=== PATIENT | male | born 1960 | race Caucasian/White ===

== ENCOUNTER 2018-04-06 11:25 | Inpatient (IN) | payer MEDICARE, SELFPAY ==
[2018-04-06 11:50] VITALS: BP 124/76; PULSE 71; RESP 16; TEMP 36.4; O2SAT 97
[2018-04-06 11:56] VITALS: BMI 33.5
[2018-04-06 11:58] VITALS: BMI 33.6
--- NOTE | 2018-04-06 12:58 | PCM.HP.STD ---
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 (3) Osteomyelitis of toe Status: Acute Comment: left great toe, distal phalnax (4) HLD (hyperlipidemia) Status: Chronic (5) History of transmetatarsal amputation of right foot Status: Chronic (6) Former smoker, stopped smoking in distant past Status: Chronic (7) Diabetic neuropathy Status: Chronic (8) CRF (chronic renal failure) Status: Chronic (9) Diabetic Charcot foot Status: Chronic History of Present Illness Date of Admission: 04/06/18 Chief Complaint: non-healing ulceration of the distal Left hallux with osteomyelitis The patient is a 58 year old M with a PMH of DM II, HTN, diabetic neuropathy, HLD, former smoker (quit in 1994) and transmetatarsal amputation of the R foot who was recently diagnosed with osteomyelitis of the left great toe by Dr. Ceballos who is being admitted to the hospital for amputation of the distal left great toe this afternoon. Osteo was diagnosed by MRI. No cultures or lab work available to me at this time. He denies fevers, chills and sweats. He has mild pain. Past Medical History Past Medical History (Chronic Problems): Chronic Problems HTN (hypertension) (Chronic) Type 2 DM with CKD and hypertension (Chronic) HLD (hyperlipidemia) (Chronic) History of transmetatarsal amputation of right foot (Chronic) Former smoker, stopped smoking in distant past (Chronic) Diabetic neuropathy (Chronic) CRF (chronic renal failure) (Chronic) Diabetic Charcot foot (Chronic) Allergies etodolac Allergy (Verified 04/06/18 12:18) Hives Home Medications: Ambulatory Orders Medication Instructions Recorded Amlodipine [Norvasc] 5 mg PO DAILY 04/06/18 Aspirin [Aspirin, Baby] 81 mg PO DAILY@0800 04/06/18 Atorvastatin Calcium [Lipitor] 40 mg PO QHS 04/06/18 Benazepril HCl [Lotensin] 20 mg PO DAILY 04/06/18 Collagenase [Santyl] 1 applicatio TOPICAL DAILY 04/06/18 Fenofibrate Nanocrystallized 160 mg PO DAILY 04/06/18 [Triglide] Ferrous Sulfate [Iron] 325 mg PO DAILY 04/06/18 Furosemide [Lasix] 20 mg PO DAILY 04/06/18 Insulin Aspart [Novolog Flexpen] 12 units SQ TIDCM 04/06/18 Insulin Glargine,Hum.rec.anlog 34 units SQ DAILY 04/06/18 [Lantus] Metformin(XR) [Glucophage Xr] 1,500 mg PO DAILY 04/06/18 Metoprolol Succinate [Toprol Xl] 50 mg PO DAILY 04/06/18 Sitagliptin Phosphate [Januvia] 100 mg PO DAILY 04/06/18 levoFLOXacin tablet [Levaquin 500 mg PO DAILY 04/06/18 tablet] Surgical History: - - TMA R foot Psychiatric History: No pertinent psych hx Lives: Spouse/ Significant Other Smoking Status: Former smoker - he quit in 1994 Tobacco Use: Non-smoker Alcohol: Occasional Drugs: None - *Family History Maternal History Items: Heart Disease Paternal History Items: - - father is alive and healthy Review of Systems Constitutional: Denies: Anorexia, Chills, Fever, Night Sweats, Weakness Eyes: Denies: Vision Change HEENT: Denies: Head Aches, Sinus Congestion, Sinus Drainage Cardiovascular: Reports: Edema - mild of the LLE at the ankle. Denies: Chest Pain, Light Headedness, Orthopnea, Palpitations Respiratory: Denies: Cough, Shortness of breath at rest, Sputum production Gastrointestinal: Denies: Abdominal Pain, Nausea, Vomiting Genitourinary: Denies: Dysuria Musculoskeletal: Reports: Foot Pain - left Skin: Reports: Wounds - there is an open wound of the distal left hallux at the tip. Denies: Jaundice, Rash Neurological: Reports: Numbness - of both distal LE's. Denies: Focal weakness, Tingling Psychiatric: Denies: Anxiety, Depression, Homicidal Ideations, Suicidal Ideations Endocrine: Denies: Change in Body Habitus Hematologic/ Lymphatic: Denies: Hx of blood clot VTE Information - Inpt Only VTE Present on Admission: No VTE Mechan Device Prophylaxis: SCD's, Knee High PAN Hose VTE Pharm Prophylaxis ordered?: No Reason prophylaxis not ordered:: Treatment Not Indicated - will have surgery in the next few hours and will start pharmacologic DVT prophylaxis post op Patient Problems: Active and Suspected Problems Osteomyelitis of toe (Acute) left great toe, distal phalnax - Physical Exam General: Alert, Oriented x3, Cooperative, No apparent distress HEENT: Atraumatic, PERRLA, EOMI, Normocephalic Oral: Moist Mucosa, No Gingival or Mucosal Lesions/ Ulcerations Neck: Supple, No JVD, Negative Carotid Bruits, No Nodes, Trachea Midline Lungs: Clear to auscultation, Normal air movement, No rhonchi, No wheeze, No rales Cardiovascular: Regular Rhythm, Normal S1, Normal S2, No murmurs, No Ectopic Activity, Bradycardic, No rub noted, No Gallop Abdomen: Bowel Sounds Present, Soft, Non Tender, Non-Distended Extremities: No clubbing, No cyanosis, No Calf Tenderness, Diminished Peripheral Pulses, Edema - of the LLE at the ankle and forefoot Skin: No rashes, Ulcer/ Wound - tip of the Left big toe. + malodor fat layer exposed Musculoskeletal: No Muscle Wasting Neurological: Cranial nerves II-XII grossly intact, Neuro grossly intact Psych/Mental Status: Normal Affect, Appropriate Vital Signs Temp Pulse Resp BP Pulse Ox 97.6 F L 71 16 124/76 H 97 04/06/18 11:50 04/06/18 11:50 04/06/18 11:50 04/06/18 11:50 04/06/18 11:50 Oxygen Delivery Method Room Air Weight: 240 lb 11.916 oz Body Mass Index (BMI) 33.5 Assessment/Plan All Active Problems Osteomyelitis of toe (Acute) Impressions 1. osteomyelitis of the distal Left great toe with non-healing ulceration 2. DM II - uncontrolled HGBA1C 3. HTN 4. Hx of a Charcot foot on the right with TMA in the past 5. PVD - triphasic wave form on non-invasive PVR's to the ankle.....disease is limited to the digits 6. HLD 7. Normochromic normocytic anemia 8. Chronic renal failure stage III BMP, CBC, PT and PTT stat ESR and CRP and HGBA1C Consult Dr. Ceballos....plans on surgery this afternoon so will keep NPO Dr. Mosher called and said no need for repeat PVR's since he has triphasic wave forms down until the ankle Recheck lab in the AM EKG pre-op Consult DR. Hou antibiotics ordered. discussed with Dr. Ceballos - will do a deep wound culture and a bone culture at the time of surgery SSI until we are able to obtain the home meds. Code Visit Inpatient E&M: [id number] Init Hosp L2
--- NOTE | 2018-04-06 13:09 | EKG12_ITS ---
Test Reason : PRE-OP Blood Pressure : / mmHG Vent. Rate : 063 BPM Atrial Rate : 063 BPM P-R Int : 224 ms QRS Dur : 102 ms QT Int : 448 ms P-R-T Axes : 018 060 124 degrees QTc Int : 458 ms Sinus rhythm with 1st degree A-V block T wave abnormality, consider lateral ischemia Abnormal ECG No previous ECGs available Confirmed by DINESH VILLALOBOS ([id number]), staff editor GABRIEL ROBERTS ([id number]) on 04/16/2018 12:34:58 PM Referred By: Del Ceballos Confirmed By:DINESH VILLALOBOS
[2018-04-06 14:14] LABS: Erythrocyte Sedimentation Rate 32 mm/hr (0-20)
[2018-04-06 14:26] LABS: International Normalized Ratio 1.2; Prothrombin Time (Protime)PT. 15.1 SECONDS (11.7-14.9)
[2018-04-06 14:29] LABS: Hemoglobin A1c 8.6 % (4.2-6.3)
[2018-04-06] MEDS: 0.9% Normal Saline 1,000 ML 75 ML IV (14:32)
[2018-04-06] MEDS: Ceftriaxone 1 GM/50 ML BAG IV (14:33)
[2018-04-06 14:39] VITALS: BP 154/93; PULSE 66; RESP 18; TEMP 36.8; O2SAT 98; BMI 35.5
[2018-04-06 14:50] VITALS: PULSE 70
[2018-04-06 14:59] LABS: Hematocrit 37.1 % (40-54); Hemoglobin 12.1 g/dl (13.0-16.5); Mean Corp Hgb Conc 32.6 g/gl (32-36); Mean Corpuscular Hgb 27.8 pg (27.0-32.0); Mean Corpuscular Volume 85.1 fL (80-94); Mean Platelet Vol. 11.1 fl (6.2-12.0); Platelet Count 335 K/mm3 (150-450); RBC Distribution Width CV 13.6 % (11.6-14.6); RBC Distribution Width SD 41.9 fl (35.1-43.9); Red Blood Count 4.36 M/mm3 (4.6-6.2); White Blood Count 8.4 K/mm3 (4.4-11.0)
[2018-04-06 15:02] LABS: Scan Indicated on CBC? Y/N NO
[2018-04-06 15:11] LABS: Bedside Glucose 77 mg/dL (70-110)
--- NOTE | 2018-04-06 15:14 | NURSING ---
Report called to Annie Engel RN, informed that Dr Mendoza has been consulted but has not seen the pt. blood glucose was 77 and will give d5. and iv flds have been ordered to change.
[2018-04-06 15:15] LABS: Anion Gap 7 (5-15); BUN 28 mg/dL (7-18); BUN/Creat Ratio 15.1 RATIO (10-20); Calcium,Total 8.7 mg/dL (8.5-10.1); Chloride 105 mmol/L (98-107); Creatinine, Serum 1.85 mg/dL (0.70-1.30); EST Glomerular Filtration Rate 40 mL/min (>60); Est Glom Filt Rate - Afr Amer 49 mL/min (>60); Estimated Creatinine Clearance 44.05 ml/min; Glucose 84 mg/dL (74-106); Potassium 4.1 mmol/L (3.5-5.1); Sodium Level 139 mmol/L (136-145)
[2018-04-06] MEDS: Dextrose 50%-Water 25 GM/50 ML DISP.SYRIN IV (15:53)
[2018-04-06 16:07] LABS: M R Staph aureus DNA By PCR Negative (Negative); Probe Check PASS; Specimen Processing Control PASS; Staph aureus DNA By PCR POSITIVE (Negative)
--- NOTE | 2018-04-06 16:38 | PCM.HP.ID ---
Problem List (1) Osteomyelitis of toe Status: Acute Comment: left great toe, distal phalnax Reason for Consult: osteo Consulted by: Dr. Chang History of Present Illness: The patient is a 58 year old M with DM neuropathy p/w 1 week of L 1st toe redness, swelling, drainage. No fever, no pain due to neuropathy. Some clear drainage. Not sure how it started. Had MRI done, saw Dr. Ceballos, sent to hospital for iv abx and OR. No n/v/d. Denies any h/o MRSA. Full ROS performed and neg except as noted above. - Medical History Past Medical History (Chronic Problems): Chronic Problems HTN (hypertension) (Chronic) Type 2 DM with CKD and hypertension (Chronic) HLD (hyperlipidemia) (Chronic) History of transmetatarsal amputation of right foot (Chronic) Former smoker, stopped smoking in distant past (Chronic) Diabetic neuropathy (Chronic) CRF (chronic renal failure) (Chronic) Diabetic Charcot foot (Chronic) Allergies/Adverse Reactions: Allergies etodolac Allergy (Verified 04/06/18 12:18) Hives Home Medications: Ambulatory Orders Medication Instructions Recorded Amlodipine [Norvasc] 5 mg PO DAILY 04/06/18 Aspirin [Aspirin, Baby] 81 mg PO DAILY@0800 04/06/18 Atorvastatin Calcium [Lipitor] 40 mg PO QHS 04/06/18 Benazepril HCl [Lotensin] 20 mg PO DAILY 04/06/18 Collagenase [Santyl] 1 applicatio TOPICAL DAILY 04/06/18 Fenofibrate Nanocrystallized 160 mg PO DAILY 04/06/18 [Triglide] Ferrous Sulfate [Iron] 325 mg PO DAILY 04/06/18 Furosemide [Lasix] 20 mg PO DAILY 04/06/18 Insulin Aspart [Novolog Flexpen] 12 units SQ TIDCM 04/06/18 Insulin Glargine,Hum.rec.anlog 34 units SQ DAILY 04/06/18 [Lantus] Metformin(XR) [Glucophage Xr] 1,500 mg PO DAILY 04/06/18 Metoprolol Succinate [Toprol Xl] 50 mg PO DAILY 04/06/18 Sitagliptin Phosphate [Januvia] 100 mg PO DAILY 04/06/18 levoFLOXacin tablet [Levaquin 500 mg PO DAILY 04/06/18 tablet] - Social History SMOKING STATUS:: Former smoker Vital Signs Temp Pulse Resp BP Pulse Ox 98.3 F 70 18 154/93 H 98 04/06/18 14:39 04/06/18 14:50 04/06/18 14:39 04/06/18 14:39 04/06/18 14:39 Oxygen Delivery Method Room Air Weight: 109.2 kg Body Mass Index (BMI) 35.5 Laboratory Tests Past 24 Hrs 04/06/18 04/06/18 04/06/18 13:42 13:55 13:55 WBC RBC Hgb Hct MCV MCH MCHC RDW RDW Differential Plt Count MPV ESR 32 H PT INR APTT Sodium Potassium Chloride Carbon Dioxide Anion Gap BUN Creatinine Estim Creat Clear Calc Est GFR (MDRD) Af Amer Est GFR (MDRD) Non-Af BUN/Creatinine Ratio Glucose Hemoglobin A1c 8.6 H Calcium C-React Prot Ext Range S.aureus Protein A PCR POSITIVE H MRSA (PCR) Negative 04/06/18 04/06/18 04/06/18 13:55 13:55 13:55 WBC 8.4 RBC 4.36 L Hgb 12.1 L Hct 37.1 L MCV 85.1 MCH 27.8 MCHC 32.6 RDW 13.6 RDW Differential 41.9 Plt Count 335 MPV 11.1 ESR PT 15.1 H INR 1.2 APTT 34.0 Sodium Potassium Chloride Carbon Dioxide Anion Gap BUN Creatinine Estim Creat Clear Calc Est GFR (MDRD) Af Amer Est GFR (MDRD) Non-Af BUN/Creatinine Ratio Glucose Hemoglobin A1c Calcium C-React Prot Ext Range 15.70 H S.aureus Protein A PCR MRSA (PCR) 04/06/18 13:55 WBC RBC Hgb Hct MCV MCH MCHC RDW RDW Differential Plt Count MPV ESR PT INR APTT Sodium 139 Potassium 4.1 Chloride 105 Carbon Dioxide 27.0 Anion Gap 7 BUN 28 H Creatinine 1.85 H Estim Creat Clear Calc 44.05 Est GFR (MDRD) Af Amer 49 L Est GFR (MDRD) Non-Af 40 L BUN/Creatinine Ratio 15.1 Glucose 84 Hemoglobin A1c Calcium 8.7 C-React Prot Ext Range S.aureus Protein A PCR MRSA (PCR) - Other Studies Radiology: [] Other Studies: [] Route of nutrition/ use of supplements: [] Nutritional Intake: [] IV Site: [] Mitchell Catheter: [] - Physical Exam General: Alert, Oriented x3, Cooperative, No apparent distress HEENT: Atraumatic, PERRLA, EOMI Neck: Supple, No Nodes Lungs: Clear to auscultation, Normal air movement Cardiovascular: Regular rate, Regular Rhythm Abdomen: Bowel Sounds Present, Soft, Non Tender, Non-Distended Extremities: Diminished Peripheral Pulses Skin: Ulcer/ Wound - L 1st toe large wound IV Site: Peripheral, without redness Musculoskeletal: No Tenderness to Palpation of Joints or Extremities Neurological: Cranial nerves II-XII grossly intact - Assessment/Plan Antibiotics: [] Assessment/Plan: [] Active and Suspected Problems Osteomyelitis of toe (Acute) left great toe, distal phalnax L 1st toe osteo with DM neuropathy - oR today for partial amp. Will cover empirically for MRSA, PsA, and anaerobes with vanc/zosyn. Thank you, will follow.
[2018-04-06 17:06] LABS: Bedside Glucose 130 mg/dL (70-110)
[2018-04-06] MEDS: Piperacil/Tazobactam 3.375 GM/50 ML ML IV ×2 (17:17→22:05)
[2018-04-06 17:40] VITALS: BP 149/85; PULSE 64; RESP 14; TEMP 36.7; O2SAT 97
--- NOTE | 2018-04-06 17:48 | PCM.CONS.GEN ---
Reason for Consult Date of Consultation: 04/06/18 Reason for Consultation: left hallux osteomyelitis History of Present Illness: The patient is a 58 year old M who presented to my office last week for the first time since October. Apparently he developed ulceration to left hallux and he is unsure how long it has been present. In addition, he has developed ulceration to left posterior heel the result of what he feels is rubbing on a brace he is using for chronic achilles rupture. He saw me last week and xrays were performed which was negative for osteomyelitis. MRI was performed and shows osteomyelitis of left hallux. esr and crp were also elevated. I have ordered pvr which shows calcified pt but normal nicolás for dorsalis pedis. waveforms were triphasic to ankle. He was admitted for planned amputation of left hallux. Past Medical History Past Medical History (Chronic Problems): Chronic Problems HTN (hypertension) (Chronic) Type 2 DM with CKD and hypertension (Chronic) HLD (hyperlipidemia) (Chronic) History of transmetatarsal amputation of right foot (Chronic) Former smoker, stopped smoking in distant past (Chronic) Diabetic neuropathy (Chronic) CRF (chronic renal failure) (Chronic) Diabetic Charcot foot (Chronic) Allergies etodolac Allergy (Verified 04/06/18 12:18) Hives Home Medications: Ambulatory Orders Medication Instructions Recorded Amlodipine [Norvasc] 5 mg PO DAILY 04/06/18 Aspirin [Aspirin, Baby] 81 mg PO DAILY@0800 04/06/18 Atorvastatin Calcium [Lipitor] 40 mg PO QHS 04/06/18 Benazepril HCl [Lotensin] 20 mg PO DAILY 04/06/18 Collagenase [Santyl] 1 applicatio TOPICAL DAILY 04/06/18 Fenofibrate Nanocrystallized 160 mg PO DAILY 04/06/18 [Triglide] Ferrous Sulfate [Iron] 325 mg PO DAILY 04/06/18 Furosemide [Lasix] 20 mg PO DAILY 04/06/18 Insulin Aspart [Novolog Flexpen] 12 units SQ TIDCM 04/06/18 Insulin Glargine,Hum.rec.anlog 34 units SQ DAILY 04/06/18 [Lantus] Metformin(XR) [Glucophage Xr] 1,500 mg PO DAILY 04/06/18 Metoprolol Succinate [Toprol Xl] 50 mg PO DAILY 04/06/18 Sitagliptin Phosphate [Januvia] 100 mg PO DAILY 04/06/18 levoFLOXacin tablet [Levaquin 500 mg PO DAILY 04/06/18 tablet] Surgical History: - - TMA R foot Psychiatric History: No pertinent psych hx Lives: Spouse/ Significant Other Smoking Status: Former smoker - he quit in 1994 Tobacco Use: Non-smoker Alcohol: Occasional Drugs: None - *Family History Maternal History Items: Heart Disease Paternal History Items: - - father is alive and healthy Patient Problems: Active and Suspected Problems Osteomyelitis of toe (Acute) left great toe, distal phalnax Objective: Patient is alert and orientated x 3. He does not appear in any distress. Vascular: DP and PT pulses are faintly palpable but audible with doppler. doppler shows audible pulse to left hallux Derm: full thickness ulceration present to left hallux with significant fibrotic tissue. there is no probe to bone. there is stable noninfected ulceration of left heel that is mix of fibrotic tissue and granulation tissue. m/s: no calf pain present. there is hallux malleus present to left hallux. there is evidence of chronic rupture of left achilles tendon. - Physical Exam Vital Signs Temp Pulse Resp BP Pulse Ox 98.1 F 64 14 149/85 H 97 04/06/18 17:40 04/06/18 17:40 04/06/18 17:40 04/06/18 17:40 04/06/18 17:40 Oxygen Delivery Method Room Air Weight: 109.2 kg Body Mass Index (BMI) 35.5 Intake and Output for Last 24 Hours 04/04/18 04/05/18 04/06/18 23:59 23:59 23:59 Intake Total 274 / 274 Output Total 210 / 210 Balance 64 / 64 Laboratory Tests Past 24 Hrs 04/06/18 04/06/18 04/06/18 13:42 13:55 13:55 WBC RBC Hgb Hct MCV MCH MCHC RDW RDW Differential Plt Count MPV ESR 32 H PT INR APTT Sodium Potassium Chloride Carbon Dioxide Anion Gap BUN Creatinine Estim Creat Clear Calc Est GFR (MDRD) Af Amer Est GFR (MDRD) Non-Af BUN/Creatinine Ratio Glucose Hemoglobin A1c 8.6 H Calcium C-React Prot Ext Range S.aureus Protein A PCR POSITIVE H MRSA (PCR) Negative 04/06/18 04/06/18 04/06/18 13:55 13:55 13:55 WBC 8.4 RBC 4.36 L Hgb 12.1 L Hct 37.1 L MCV 85.1 MCH 27.8 MCHC 32.6 RDW 13.6 RDW Differential 41.9 Plt Count 335 MPV 11.1 ESR PT 15.1 H INR 1.2 APTT 34.0 Sodium Potassium Chloride Carbon Dioxide Anion Gap BUN Creatinine Estim Creat Clear Calc Est GFR (MDRD) Af Amer Est GFR (MDRD) Non-Af BUN/Creatinine Ratio Glucose Hemoglobin A1c Calcium C-React Prot Ext Range 15.70 H S.aureus Protein A PCR MRSA (PCR) 04/06/18 13:55 WBC RBC Hgb Hct MCV MCH MCHC RDW RDW Differential Plt Count MPV ESR PT INR APTT Sodium 139 Potassium 4.1 Chloride 105 Carbon Dioxide 27.0 Anion Gap 7 BUN 28 H Creatinine 1.85 H Estim Creat Clear Calc 44.05 Est GFR (MDRD) Af Amer 49 L Est GFR (MDRD) Non-Af 40 L BUN/Creatinine Ratio 15.1 Glucose 84 Hemoglobin A1c Calcium 8.7 C-React Prot Ext Range S.aureus Protein A PCR MRSA (PCR) POC Glucose 04/06/18 04/06/18 16:59 14:47 POC Glucose 130 H 77 Assessment/Plan All Active Problems Osteomyelitis of toe (Acute) Patient was examined and informed of current findings I have performed xrays, mri and blood work. mri and blood work suggest osteomyelitis of left hallux distal phalanx. I have discussed plan to perform amputation of left hallux distal phalanx with likely staged amputation with delayed closure. I have discussed options for the infected toe not limited to conservative care and wound healing with antibiotics vs amputation. patient would like to proceed with amputation. I have ordered pvr and have discussed these results with vascular surgery who feel comfortable based on triphasic waveform to ankle that he will heal. will plan for amputation provided he is cleared discussed ulceration of left heel. it is nonifected. it is the result of rubbing in brace for chronic achilles rupture. he has been seen by ortho who plans on conservative care until his diabetes is under control. I will continue with silvercel for now. I did discuss bioppsy of heel but he would like to hold on this will proceed with amputation once he is medically cleared. Code Visit Office Visits / Consults: [id number] OV L3 New
--- NOTE | 2018-04-06 18:03 | PCM.RX.CS ---
Consult Pharmacy has been consulted to manage selected antiobiotic: Vancomycin Type of Consult: New start Suspected Infection: Osteomyelitis Labs: Sodium 139 mmol/L (136-145) 04/06/18 13:55 Potassium 4.1 mmol/L (3.5-5.1) 04/06/18 13:55 Chloride 105 mmol/L (98-107) 04/06/18 13:55 Carbon Dioxide 27.0 mmol/L (21.0-32.0) 04/06/18 13:55 Anion Gap 7 (5-15) 04/06/18 13:55 BUN 28 mg/dL (7-18) H 04/06/18 13:55 Creatinine 1.85 mg/dL (0.70-1.30) H 04/06/18 13:55 Est GFR (MDRD) Af Amer 49 mL/min (>60) L 04/06/18 13:55 Est GFR (MDRD) Non-Af 40 mL/min (>60) L 04/06/18 13:55 BUN/Creatinine Ratio 15.1 RATIO (10-20) 04/06/18 13:55 Glucose 84 mg/dL (74-106) 04/06/18 13:55 Weight used for dosin lb 4.862 oz Estimated Creatinine Clearance: 44 ML/MIN Goal Trough: 15-20 mcg/mL Pharmacy Plan for Drug Dosing: Pharmacy Service will continue to monitor and adjust dosing as required. Follow-Up Labs: Trough Vancomycin
[2018-04-06] MEDS: Atorvastatin Calcium 40 MG Tablet PO (22:06)
[2018-04-06 22:21] LABS: Bedside Glucose 121 mg/dL (70-110)
[2018-04-06 22:38] VITALS: BP 144/72; PULSE 67; RESP 15; TEMP 37; O2SAT 96
[2018-04-07] VITALS (12 sets, daily range): BP systolic 134–163; BP diastolic 77–88; PULSE 62–80; RESP 16–18; TEMP 36.1–37; O2SAT 94–97; BMI 35.5
[2018-04-07] MEDS: 0.9% Normal Saline 1,000 ML 75 ML IV (05:06)
[2018-04-07] MEDS: Vancomycin IV 1,000 MG/200 ML BAG 200 MG IV (05:07)
[2018-04-07] MEDS: Piperacil/Tazobactam 3.375 GM/50 ML ML IV ×3 (05:07→21:30)
[2018-04-07 06:44] LABS: Absolute Lymphocyte Count 1.46 X10^3/ul (0.83-4.51); Absolute Neutrophil Count 5.4 X10^3/uL (2.0-7.7); Basophil# 0.02 X10^3/uL; Basophil% 0.3 % (0-1); Eosinophil# 0.16 X10^3/uL; Hematocrit 37.6 % (40-54); Hemoglobin 12.2 g/dl (13.0-16.5); Lymphocyte # 1.46 X10^3/ul (4.0); Lymphocyte % 18.6 % (19-41); Mean Corp Hgb Conc 32.4 g/gl (32-36); Mean Corpuscular Hgb 27.7 pg (27.0-32.0); Mean Corpuscular Volume 85.3 fL (80-94); Mean Platelet Vol. 10.6 fl (6.2-12.0); Monocyte# 0.75 X10^3/uL; Monocyte% 9.6 % (0-10); Neutrophil # 5.44 X10^3/uL (2.7-7.7); Neutrophil % 69.4 % (47-70); Platelet Count 294 K/mm3 (150-450); RBC Distribution Width CV 13.5 % (11.6-14.6); RBC Distribution Width SD 41.9 fl (35.1-43.9); Red Blood Count 4.41 M/mm3 (4.6-6.2); White Blood Count 7.8 K/mm3 (4.4-11.0)
[2018-04-07 06:48] LABS: POSITIVE COUNT NO; POSITIVE DIFFERENTIAL NO; POSITIVE MORPHOLOGY NO
--- NOTE | 2018-04-07 07:00 | PN_ITS ---
Patient Problems: Active and Suspected Problems Osteomyelitis of toe (Acute) left great toe, distal phalnax Subjective: All events of the past 24 Hours have been reviewed Antibiotic day #2 VS: Afebrile since admission. Systolic blood pressure is mildly elevated. He is 96-97% saturated on room air. TMAX -afebrile I&O -+696 since admission Blood sugars -controlled Lab: White blood cell count is within normal limits. Differential is unremarkable. Sed rate was 32 and the CRP is also mildly elevated at 15.7. Creatinine at admission was 1.85 and he is known to have chronic renal failure stage III. Subjective: Patient is a 58-year-old male admitted to the hospital yesterday with osteomyelitis of the distal left hallux with the intention of going to surgery however this never occurred. He was seen by Dr. Hou from infectious disease and the antibiotics were changed to vancomycin and Zosyn until cultures could be obtained and resulted. He has no complaints today. He is anxious to have his surgery completed. He denies chest pain, shortness of breath, palpitations, lightheadedness. He has not required any medication for pain since admission. Objective: PHYSICAL EXAM: GENERAL: alert, oriented X 3, Cooperative, NAD ORAL: moist mucosa, no mucosal lesions NECK: No JVD, supple, trachea midline LUNGS: CTA, symmetric chest expansion HEART: RRR, Normal S1 and S2, no rub, no gallop ABDOMEN: soft, NT, ND, BS present, no guarding with palpation EXTREMITIES: no edema, no cyanosis, no calf tenderness SKIN: No rashes, There is no dressing on the left hallux and the wound is dry. There is no erythema of the toe or foot. No odor today and no purulent DC. NEUROLOGIC: no focal neurologic deficits PSYCH: appropriate, normal affect, pleasant - Physical Exam Vital Signs Temp Pulse Resp BP Pulse Ox 98.2 F 67 16 147/87 H 97 04/07/18 04:00 04/07/18 04:00 04/07/18 04:00 04/07/18 04:00 04/07/18 04:00 Oxygen Delivery Method Room Air Weight: 240 lb 11.916 oz Body Mass Index (BMI) 35.5 Intake and Output for Last 24 Hours 04/05/18 04/06/18 04/07/18 23:59 23:59 23:59 Intake Total 274 / 274 2182 / 2182 Output Total 210 / 210 1550 / 1550 Balance 64 / 64 632 / 632 Laboratory Tests Past 24 Hrs 04/06/18 04/06/18 04/06/18 13:42 13:55 13:55 WBC RBC Hgb Hct MCV MCH MCHC RDW RDW Differential Plt Count MPV Immature Gran % (Auto) Neut % (Auto) Lymph % (Auto) [place] % (Auto) Eos % (Auto) Baso % (Auto) Absolute Neuts (auto) Absolute Lymphs (auto) Total Counted ESR 32 H PT INR APTT Sodium Potassium Chloride Carbon Dioxide Anion Gap BUN Creatinine Estim Creat Clear Calc Est GFR (MDRD) Af Amer Est GFR (MDRD) Non-Af BUN/Creatinine Ratio Glucose Hemoglobin A1c 8.6 H Calcium Phosphorus Magnesium Total Bilirubin AST ALT Alkaline Phosphatase C-React Prot Ext Range Total Protein Albumin Triglycerides Cholesterol LDL Cholesterol VLDL Cholesterol HDL Cholesterol S.aureus Protein A PCR POSITIVE H MRSA (PCR) Negative 04/06/18 04/06/18 04/06/18 13:55 13:55 13:55 WBC 8.4 RBC 4.36 L Hgb 12.1 L Hct 37.1 L MCV 85.1 MCH 27.8 MCHC 32.6 RDW 13.6 RDW Differential 41.9 Plt Count 335 MPV 11.1 Immature Gran % (Auto) Neut % (Auto) Lymph % (Auto) [place] % (Auto) Eos % (Auto) Baso % (Auto) Absolute Neuts (auto) Absolute Lymphs (auto) Total Counted ESR PT 15.1 H INR 1.2 APTT 34.0 Sodium Potassium Chloride Carbon Dioxide Anion Gap BUN Creatinine Estim Creat Clear Calc Est GFR (MDRD) Af Amer Est GFR (MDRD) Non-Af BUN/Creatinine Ratio Glucose Hemoglobin A1c Calcium Phosphorus Magnesium Total Bilirubin AST ALT Alkaline Phosphatase C-React Prot Ext Range 15.70 H Total Protein Albumin Triglycerides Cholesterol LDL Cholesterol VLDL Cholesterol HDL Cholesterol S.aureus Protein A PCR MRSA (PCR) 04/06/18 04/07/18 04/07/18 13:55 06:18 06:18 WBC 7.8 RBC 4.41 L Hgb 12.2 L Hct 37.6 L MCV 85.3 MCH 27.7 MCHC 32.4 RDW 13.5 RDW Differential 41.9 Plt Count 294 MPV 10.6 Immature Gran % (Auto) 0.100 Neut % (Auto) 69.4 Lymph % (Auto) 18.6 L [place] % (Auto) 9.6 Eos % (Auto) 2.0 Baso % (Auto) 0.3 Absolute Neuts (auto) 5.4 Absolute Lymphs (auto) 1.46 Total Counted Not Reportable ESR PT INR APTT Sodium 139 Pending Potassium 4.1 Pending Chloride 105 Pending Carbon Dioxide 27.0 Pending Anion Gap 7 Pending BUN 28 H Pending Creatinine 1.85 H Pending Estim Creat Clear Calc 44.05 Est GFR (MDRD) Af Amer 49 L Pending Est GFR (MDRD) Non-Af 40 L Pending BUN/Creatinine Ratio 15.1 Pending Glucose 84 Pending Hemoglobin A1c Calcium 8.7 Pending Phosphorus Pending Magnesium Pending Total Bilirubin Pending AST Pending ALT Pending Alkaline Phosphatase Pending C-React Prot Ext Range Total Protein Pending Albumin Pending Triglycerides Pending Cholesterol Pending LDL Cholesterol Pending VLDL Cholesterol Pending HDL Cholesterol Pending S.aureus Protein A PCR MRSA (PCR) POC Glucose 04/06/18 04/06/18 04/06/18 22:15 16:59 14:47 POC Glucose 121 H 130 H 77 Medical Necessity - Tobacco Use Smoking Status: Former smoker - he quit in 1994 Tobacco Use: Non-smoker Assessment/Plan All Active Problems Osteomyelitis of toe (Acute) Impressions 1. osteomyelitis of the distal Left great toe with non-healing ulceration 2. DM II - uncontrolled HGBA1C is 8.6 3. HTN 4. Hx of a Charcot foot on the right with TMA in the past 5. PVD - triphasic wave form on non-invasive PVR's to the ankle.....disease is limited to the digits 6. HLD 7. Normochromic normocytic anemia 8. Chronic renal failure stage III Discussed with Dr. Stevenson and Dr. Ceballos. Apparently the surgery planned for yesterday was cancelled because of EKG abnormalities. The EKG was compared to an EKG done in November of 2017 and there has been no change. He has seen his language pathologist, Dr. Elliott Mendoza in the past 3 months and he has no CP or SOB. He will have a MAC/local and the procedure is low risk. He is going to be scheduled for surgery today and both Dr. Gong and Dr. Ceballos are in agreement. Code Visit Inpatient E&M: 47872 Subs Hosp L2
[2018-04-07 07:04] LABS: ALB/GLOB Ratio 0.8 RATIO (0.9-2.4); AST(SGOT) 22 U/L (15-37); Alanine Aminotransfer ALT/SGPT 22 U/L (16-61); Albumin, Serum 2.8 g/dL (3.2-5.0); Alkaline Phosphatase 31 U/L (45-117); Anion Gap 10 (5-15); BUN 22 mg/dL (7-18); BUN/Creat Ratio 14.3 RATIO (10-20); Calcium,Total 8.7 mg/dL (8.5-10.1); Chloride 106 mmol/L (98-107); Cholesterol 124 mg/dL (200); Creatinine, Serum 1.54 mg/dL (0.70-1.30); EST Glomerular Filtration Rate 50 mL/min (>60); Est Glom Filt Rate - Afr Amer 60 mL/min (>60); Estimated Creatinine Clearance 52.92 ml/min; Globulin 3.7 g/dL (2.2-4.2); Glucose 167 mg/dL (74-106); High Density Lipoprotein 26 mg/dL; Magnesium 1.6 mg/dL (1.6-2.6); Phosphorus 3.2 mg/dL (2.5-4.9); Protein, Total 6.5 g/dL (6.4-8.2); Sodium Level 142 mmol/L (136-145); Triglycerides 109 mg/dL; Very Low Density Lipoprotein 22 mg/dL (5-40)
[2018-04-07 07:21] LABS: Bedside Glucose 125 mg/dL (70-110)
--- NOTE | 2018-04-07 07:45 | PN.SURG_ITS ---
Patient Problems: Active and Suspected Problems Osteomyelitis of toe (Acute) left great toe, distal phalnax Subjective: patient seen at bedside with no complaints. awaiting surgery for amputation of great toe Objective: patient is alert and orientated x 3. nad vascular: DP and PT pulses are faintly palpable but audible to toe. nicolás of dorsalis pedis is 1.14. waveforms triphasic to ankle. derm: there is full thickness ulceration of left hallux distal phalanx with significant skin loss. there is mri confirming osteomyelitis. there is very superficial granular ulceration of left posterior heel. no signs of infection to left heel. m/s: there is contracture of left hallux ipj - Physical Exam Vital Signs Temp Pulse Resp BP Pulse Ox 98.2 F 67 16 147/87 H 97 04/07/18 04:00 04/07/18 04:00 04/07/18 04:00 04/07/18 04:00 04/07/18 04:00 Oxygen Delivery Method Room Air Weight: 109.2 kg Body Mass Index (BMI) 35.5 Intake and Output for Last 24 Hours 04/05/18 04/06/18 04/07/18 23:59 23:59 23:59 Intake Total 274 / 274 2182 / 2182 Output Total 210 / 210 1550 / 1550 Balance 64 / 64 632 / 632 Laboratory Tests Past 24 Hrs 04/06/18 04/06/18 04/06/18 13:42 13:55 13:55 WBC RBC Hgb Hct MCV MCH MCHC RDW RDW Differential Plt Count MPV Immature Gran % (Auto) Neut % (Auto) Lymph % (Auto) [place] % (Auto) Eos % (Auto) Baso % (Auto) Absolute Neuts (auto) Absolute Lymphs (auto) Total Counted ESR 32 H PT INR APTT Sodium Potassium Chloride Carbon Dioxide Anion Gap BUN Creatinine Estim Creat Clear Calc Est GFR (MDRD) Af Amer Est GFR (MDRD) Non-Af BUN/Creatinine Ratio Glucose Hemoglobin A1c 8.6 H Calcium Phosphorus Magnesium Total Bilirubin AST ALT Alkaline Phosphatase C-React Prot Ext Range Total Protein Albumin Globulin Albumin/Globulin Ratio Triglycerides Cholesterol LDL Cholesterol VLDL Cholesterol HDL Cholesterol S.aureus Protein A PCR POSITIVE H MRSA (PCR) Negative 04/06/18 04/06/18 04/06/18 13:55 13:55 13:55 WBC 8.4 RBC 4.36 L Hgb 12.1 L Hct 37.1 L MCV 85.1 MCH 27.8 MCHC 32.6 RDW 13.6 RDW Differential 41.9 Plt Count 335 MPV 11.1 Immature Gran % (Auto) Neut % (Auto) Lymph % (Auto) [place] % (Auto) Eos % (Auto) Baso % (Auto) Absolute Neuts (auto) Absolute Lymphs (auto) Total Counted ESR PT 15.1 H INR 1.2 APTT 34.0 Sodium Potassium Chloride Carbon Dioxide Anion Gap BUN Creatinine Estim Creat Clear Calc Est GFR (MDRD) Af Amer Est GFR (MDRD) Non-Af BUN/Creatinine Ratio Glucose Hemoglobin A1c Calcium Phosphorus Magnesium Total Bilirubin AST ALT Alkaline Phosphatase C-React Prot Ext Range 15.70 H Total Protein Albumin Globulin Albumin/Globulin Ratio Triglycerides Cholesterol LDL Cholesterol VLDL Cholesterol HDL Cholesterol S.aureus Protein A PCR MRSA (PCR) 04/06/18 04/07/18 04/07/18 13:55 06:18 06:18 WBC 7.8 RBC 4.41 L Hgb 12.2 L Hct 37.6 L MCV 85.3 MCH 27.7 MCHC 32.4 RDW 13.5 RDW Differential 41.9 Plt Count 294 MPV 10.6 Immature Gran % (Auto) 0.100 Neut % (Auto) 69.4 Lymph % (Auto) 18.6 L [place] % (Auto) 9.6 Eos % (Auto) 2.0 Baso % (Auto) 0.3 Absolute Neuts (auto) 5.4 Absolute Lymphs (auto) 1.46 Total Counted Not Reportable ESR PT INR APTT Sodium 139 142 Potassium 4.1 4.0 Chloride 105 106 Carbon Dioxide 27.0 26.0 Anion Gap 7 10 BUN 28 H 22 H Creatinine 1.85 H 1.54 H Estim Creat Clear Calc 44.05 52.92 Est GFR (MDRD) Af Amer 49 L 60 Est GFR (MDRD) Non-Af 40 L 50 L BUN/Creatinine Ratio 15.1 14.3 Glucose 84 167 H Hemoglobin A1c Calcium 8.7 8.7 Phosphorus 3.2 Magnesium 1.6 Total Bilirubin 0.40 AST 22 ALT 22 Alkaline Phosphatase 31 L C-React Prot Ext Range Total Protein 6.5 Albumin 2.8 L Globulin 3.7 Albumin/Globulin Ratio 0.8 L Triglycerides 109 Cholesterol 124 LDL Cholesterol 76 VLDL Cholesterol 22 HDL Cholesterol 26 L S.aureus Protein A PCR MRSA (PCR) POC Glucose 04/07/18 04/06/18 04/06/18 07:16 22:15 16:59 POC Glucose 125 H 121 H 130 H 04/06/18 14:47 POC Glucose 77 Medical Necessity - Tobacco Use Smoking Status: Former smoker - he quit in 1994 Tobacco Use: Non-smoker Assessment/Plan All Active Problems Osteomyelitis of toe (Acute) patient has osteomyelitis of left hallux. patient was scheduled for surgery yesterday but postponed for further cardiac work-up. I have spoken with the hospitalist who feels patient is medically stable for amputation. will proceed with amputation this afternoon. will perform distal hallux amputation and will either leave open or close primarily depending on what is seen intra- operatively. He does have adequate pulses based on pvr. I have spoken with vascular surgery who agrees patient is stable to perform. he does have very superficial ulcer of left heel that appears stable and nonifnected. continue with offloading of b/l heels.
[2018-04-07] MEDS: Metoprolol(XL)Succ 50 MG Tablet PO (10:02)
[2018-04-07] MEDS: amLODIPine 5 MG Tablet PO (10:03)
--- NOTE | 2018-04-07 11:01 | CASEMGMT ---
See RN CM Assessment Link. DC Plan: Home on discharge. -DC Plan: pt denies needs at home. States is able to assist. Dakota GODINEZN RN ACM
--- NOTE | 2018-04-07 11:06 | NURSING ---
wound photo: left great toe
[2018-04-07 13:10] LABS: Bedside Glucose 151 mg/dL (70-110)
[2018-04-07] MEDS: 0.9% NaCl Peripheral Flush Adult/Peds IV (13:12)
--- NOTE | 2018-04-07 15:40 | RAD_ITS ---
STUDY: X-RAY LEFT FOOT, GREAT TOE REASON FOR EXAM: Male, 58 years old. Documentation of radiation exposure during surgery. TECHNIQUE: 13 view(s) of the toe were obtained. COMPARISON: Radiographs of the left foot dated April 07, 2018. FINDINGS: Total exposure time is 0:20 seconds. Single longest exposure is 0.03 seconds. Total DAP (cGy*cm2) is 2.7609. Total air Kerma is 0.1643 mGy. For additional details see operative report. RAD/Toe(s) Min 2 Views IMPRESSION: Documentation of fluoroscopic radiation dose during surgery. Electronically Signed: Barb Santos MD at 2:32 EDT , Service support ,
--- NOTE | 2018-04-07 17:01 | PCM.IMDPSTOP ---
Immediate Post-Op Note Date of Procedure: 04/07/18 Primary Surgeon/Physician: Del Ceballos DPM hvac sheet metal installer: None Pre-Operative Diagnosis: osteomyelitis, left hallux distal phalanx Post-Operative Diagnosis: osteomyelitis, left hallux distal phalanx Surgery/Procedure Performed:: Left hallux amputation Description of Surgical Findings:: softening of left hallux distal phalanx consistent with osteomyelitis Estimated Blood Loss: <15 cc Specimen's removed: left hallux distal phalanx: Pathology and micro. Left hallux proximal phalanx: pathology and micro Type of Anesthesia:: Local MAC ASA Class: ASA3 Plus Emergency
--- NOTE | 2018-04-07 17:04 | PCM.OPRPT ---
Report of Operation Date of Procedure: 04/07/18 Pre-Operative Diagnosis: osteomyelitis, left hallux distal phalanx Post-Operative Diagnosis: osteomyelitis, left hallux distal phalanx Surgery/Procedure Performed:: Left hallux amputation Description of Surgical Findings:: Patient is a 58 year old male who has large 2.1 cm x 2.1 cm fibrotic ulceration to the distal aspect of left hallux. ulceration has been present for unknown duration and has firotic/granular appearance with mild odor. MRI performed at [facility] suggests osteomyelitis of distal tuft. In addition to this ulceration of left hallux, he has stable, noninfected ulceration of left heel, likely caused by rubbing in splint. patient is currently admitted for amputation of left hallux. I have discussed options for this patient ulceration/bone infection not limited to bone biopsy and IV antibiotics vs amputation. Patient is concerned about the large tissue loss, the potential spread of infection and the contracture present to left hallux so he has elected for amputation. I have ordered pvr at [facility] and PRINCE of dorsalis pedis is 1.14 and triphasic to ankle. he has audible pulses to the left hallux. I did discuss these results with vascular surgery who reports no further testing is necessary nor any vascular intervention is required for amputation of left hallux. I have discussed risks of this procedure not limited to infection, pain, swelling, bleeding, hematoma, need for more proximal amputation, slow wound healing, need for advanced wound care, cardiac arrest, dvt, . patient understands this is a limb salvage procedure. I did discuss biopsy of left heel. patient has elected to monitor this for now. Patient has been evaluated by infectious disease and is treated with antibiotics. all questions answered. no guarantees expressed. consent has been signed by patient. I have informed patient that the infection of distal tuft could likely show no infection given his current treatment with antibiotics. patient still would like to proceed with surgery. Patient was transferred from pre-op holding area to operating room and placed on operating room table in supine position. he was placed under mac anesthesia. the left foot was prepped and draped in usual aseptic technique. the left foot was injected with 5 cc of 1% lidocaine plain. Time out was performed. attention was directed to left hallux where there was large tissue defect measuring 2.1 cm x 2.1 cm with fibrotic base. a wound culture was performed and pcr performed. an incision beginning medially and excising the distal phalanx and ulceration was performed. the left hallux distal phalanx was disarticulated. the distal phalanx was found to be very soft at the distal tuft. a sample of the distal phalanx was sent for pathology and micro. using a sagittal saw, the head of proximal phalanx was resected from dorsal distal to plantar proximal. pulse lavage was performed with 3000 cc of normal saline. clean instruments were exchanged. a post-lavage sample of proximal phalanx was submitted for pathology and micro. skin edges was debulked. the lateral and central incision was reapproximated but medial incision was packed open and will be flushed daily. will plan for delayed closure Friday AM. post-op dressing was applied. patient was awakened and found to be in stable condition. will continue with antibiotics plan for delayed closure friday. clinical registered nurse: None Type of Anesthesia:: Local MAC Specimen's removed: left hallux distal phalanx: Pathology and micro. Left hallux proximal phalanx: pathology and micro Estimated Blood Loss (mL): <15 cc
--- NOTE | 2018-04-07 17:13 | OP.PCM_ITS ---
Report of Operation Date of Procedure: 04/07/18 Pre-Operative Diagnosis: osteomyelitis, left hallux distal phalanx Post-Operative Diagnosis: osteomyelitis, left hallux distal phalanx Surgery/Procedure Performed:: Left hallux amputation Description of Surgical Findings:: Patient is a 58 year old male who has large 2.1 cm x 2.1 cm fibrotic ulceration to the distal aspect of left hallux. ulceration has been present for unknown duration and has firotic/granular appearance with mild odor. MRI performed at [facility] suggests osteomyelitis of distal tuft. In addition to this ulceration of left hallux, he has stable, noninfected ulceration of left heel, likely caused by rubbing in splint. patient is currently admitted for amputation of left hallux. I have discussed options for this patient ulceration /bone infection not limited to bone biopsy and IV antibiotics vs amputation. Patient is concerned about the large tissue loss, the potential spread of infection and the contracture present to left hallux so he has elected for amputation. I have ordered pvr at [facility] and PRINCE of dorsalis pedis is 1.14 and triphasic to ankle. he has audible pulses to the left hallux. I did discuss these results with vascular surgery who reports no further testing is necessary nor any vascular intervention is required for amputation of left hallux. I have discussed risks of this procedure not limited to infection, pain , swelling, bleeding, hematoma, need for more proximal amputation, slow wound healing, need for advanced wound care, cardiac arrest, dvt, . patient understands this is a limb salvage procedure. I did discuss biopsy of left heel. patient has elected to monitor this for now. Patient has been evaluated by infectious disease and is treated with antibiotics. all questions answered. no guarantees expressed. consent has been signed by patient. I have informed patient that the infection of distal tuft could likely show no infection given his current treatment with antibiotics. patient still would like to proceed with surgery. Patient was transferred from pre-op holding area to operating room and placed on operating room table in supine position. he was placed under mac anesthesia. the left foot was prepped and draped in usual aseptic technique. the left foot was injected with 5 cc of 1% lidocaine plain. Time out was performed. attention was directed to left hallux where there was large tissue defect measuring 2.1 cm x 2.1 cm with fibrotic base. a wound culture was performed and pcr performed. an incision beginning medially and excising the distal phalanx and ulceration was performed. the left hallux distal phalanx was disarticulated. the distal phalanx was found to be very soft at the distal tuft. a sample of the distal phalanx was sent for pathology and micro. using a sagittal saw, the head of proximal phalanx was resected from dorsal distal to plantar proximal. pulse lavage was performed with 3000 cc of normal saline. clean instruments were exchanged. a post-lavage sample of proximal phalanx was submitted for pathology and micro. skin edges was debulked. the lateral and central incision was reapproximated but medial incision was packed open and will be flushed daily. will plan for delayed closure Friday AM. post-op dressing was applied. patient was awakened and found to be in stable condition. will continue with antibiotics plan for delayed closure friday. lab support technician: None Type of Anesthesia:: Local MAC Specimen's removed: left hallux distal phalanx: Pathology and micro. Left hallux proximal phalanx: pathology and micro Estimated Blood Loss (mL): <15 cc
--- NOTE | 2018-04-07 17:30 | RAD_ITS ---
STUDY: X-RAY - LEFT FOOT CLINICAL: Male, 58 years old. Postoperative evaluation of the left foot. TECHNIQUE: 3 view(s) of the foot. COMPARISON: Prior comparison studies are not available for review at this time. FINDINGS: There is a posterior calcaneal enthesophyte and plantar calcaneal spur. There are mild degenerative changes of intertarsal articulations. Normal metatarsi. There is degenerative arthrosis of the metatarsophalangeal joint of the hallux . Normal tibial and fibular sesamoid bones. The patient has had amputation of the distal aspect of the proximal phalanx incomplete of distal phalanx of the hallux. Normal second through fifth metatarsophalangeal joints. Normal interphalangeal joints and phalanges of the lesser toes. There is soft tissue swelling of the left foot. There are vascular calcifications of the ankle and foot. RAD/Foot min 3 Views IMPRESSION: 1. Status post amputation of the distal phalanx and partial amputation of the proximal phalanx of the hallux. 2. Degenerative changes of the midfoot and first metatarsophalangeal joint. 3. Calcaneal spurs. Electronically Signed: Barb Santos MD at 1:25 EDT , Service support ,
[2018-04-07 17:45] LABS: Bedside Glucose 119 mg/dL (70-110)
[2018-04-07] MEDS: Glucerna Shake 120 ML LIQUID PO (18:03)
[2018-04-07] MEDS: Insulin Lispro 100 UNIT/ML INSULN.PEN 12 UNIT SC (18:07)
[2018-04-07 18:21] LABS: Bedside Glucose 130 mg/dL (70-110)
[2018-04-07 21:17] LABS: M R Staph aureus DNA By PCR Negative (Negative); Probe Check PASS; Staph aureus DNA By PCR POSITIVE (Negative)
[2018-04-07] MEDS: Insulin Lispro 100 UNIT/ML INSULN.PEN SQ (21:29)
[2018-04-07] MEDS: Atorvastatin Calcium 40 MG Tablet PO (21:30)
[2018-04-07 21:40] LABS: Bedside Glucose 189 mg/dL (70-110)
--- NOTE | 2018-04-08 | AMP_PTH ---
PATIENT: FINN TORRES LOC: MS2 U#:[id number] AGE/SX: 58/M ROOM: [facility] RE04/06/[address]: Dr. Filomena Robbins MD : 1960 BED: 1 DIS: 04/11/2018 SPEC #: [id number] RECD: 04/08/18 11:20 STATUS: AR REQ #: [id number] CANDIE: 04/08/18 00:[address]: Del Ceballos DEPT: SURGICAL PATHOLOGY RECD BY: Robin London ENTERED: 04/08/18 11:24 SP TYPE: Amputation OTHR DR: DO Dr. Kashif Handley MD Dr. Matthew Testrake, DPM Dr. Fletcher Hou MD Tissues: A - Toe, NOS B - Bone of foot, NOS Procedures: Decalcification bone/plaque Special Stain Group I Surgery Specimen Level III Surgery Specimen Level IV AFB Stain (control) GMS Stain (control) Comments: @ Ordering doctor for DEC edited from to @ by RENA at 04/08/18 1529 @ Ordering doctor for SUIII edited from to @ by RENA at 04/08/18 1529 @ Ordering doctor for SUIV edited from to @ afshan CHASE at 04/08/18 1529 @ Submitting doctor edited from to @ afshan CHASE at 04/08/18 1529 HEADER OPERATION: Left distal hallux great toe amputation PRE-OP DIAGNOSIS: Osteomyelitis of left great distal phalanx TISSUE SUBMITTED: A ? Left great toe distal hallux, pre-lavage, B - Left great toe proximal hallux, postlavage MICROSCOPIC DIAGNOSIS A. Left great distal hallux, amputation: Focal ulceration and acute and chronic inflammation and fibrosis. Underlying bone with acute osteomyelitis. Special stains for acid fast bacilli and fungi are negative for organisms; matched controls are appropriate. B. Left proximal hallux, postlavage, great toe; Pieces of bone, negative for acute osteomyelitis. SJ:francie 04/13/18 MICROSCOPIC DESCRIPTION Slides are reviewed. GROSS DESCRIPTION A - Received in fixative is one container labeled with the patient's name and designated left distal hallux prelavage great toe. The specimen consists of a portion of toe measuring 3.5 x 4 x 2.5 cm. A focal area of ulceration is noted at the dorsal surface of the toe close to the tip measuring 2.5 x 2.2 cm. The cutaneous resection margin is inked. Home Improvement Advisor sections are submitted in three cassettes as follows: 1 ? ulcerated area including cutaneous resection margin, 2 & 3 ? bone underneath the ulcerated area after decalcification. B - Received in fixative is one container labeled with the patient's name and designated left proximal hallux postlavage great toe. The specimen consists of two pieces of bone measuring in aggregate 0.7 x 0.4 x 0.2 cm. The specimen is totally submitted in one cassette after decalcification. / SJ:rg 04/08/18 TC:2 CPT: 19653, 20222, 33627 x2, 34762 x2
[2018-04-08 00:15] VITALS: BP 155/85; PULSE 65; RESP 18; TEMP 36.6; O2SAT 96
[2018-04-08] MEDS: 0.9% Normal Saline 1,000 ML 75 ML IV (01:52)
[2018-04-08] MEDS: Piperacil/Tazobactam 3.375 GM/50 ML ML IV ×3 (06:13→22:08)
[2018-04-08 06:15] VITALS: BP 158/81; PULSE 74; RESP 18; TEMP 37.8; O2SAT 97
[2018-04-08 06:51] LABS: Bedside Glucose 148 mg/dL (70-110)
--- NOTE | 2018-04-08 07:06 | PCM.PROGNOTE ---
Patient Problems: Active and Suspected Problems Osteomyelitis of toe (Acute) left great toe, distal phalnax Subjective: All events of the past 24 Hours have been reviewed Postoperative day #1 Zosyn Antibiotic day #3 VS: Systolic blood pressures remain mildly elevated TMAX -100.1?F this a.m. I&O -+1331 Blood sugars -well controlled Lab: Creatinine is 1.54, down from 1.85 on 04/06/2018 Micro: All cultures are pending Subjective: The wound on the left hallux was left open at the conclusion of surgery so that it may be irrigated daily. Dr. Ceballos plans on closing on Friday. Pain is adequately controlled. Denies shortness of breath or chest pain. - Physical Exam General: Alert, Oriented x3, Cooperative, No apparent distress Oral: Moist Mucosa, No Gingival or Mucosal Lesions/ Ulcerations Neck: No JVD, Trachea Midline Lungs: Clear to auscultation Cardiovascular: Regular rate, Regular Rhythm, Normal S1, Normal S2, No Gallop Abdomen: Bowel Sounds Present, Soft, Non Tender, Non-Distended, - - no BM since admission Extremities: No cyanosis Skin: - - Dressing was taken down by Dr. Ceballos this AM and irrigated and redressed.....please see his dictation for a description of the wound Psych/Mental Status: Normal Affect, Appropriate Vital Signs Temp Pulse Resp BP Pulse Ox 100.1 F H 74 18 158/81 H 97 04/08/18 06:15 04/08/18 06:15 04/08/18 06:15 04/08/18 06:15 04/08/18 06:15 Oxygen Delivery Method Room Air Weight: 240 lb 11.916 oz Body Mass Index (BMI) 35.5 Finger Stick Blood Glucose 119 Intake and Output for Last 24 Hours 04/06/18 04/07/18 04/08/18 23:59 23:59 23:59 Intake Total 274 / 274 3342 / 3342 1350 / 1350 Output Total 210 / 210 1950 / 1950 1475 / 1475 Balance 64 / 64 1392 / 1392 -125 / -125 Laboratory Tests Past 24 Hrs 04/07/18 Unknown S.aureus Protein A PCR POSITIVE H MRSA (PCR) Negative POC Glucose 04/08/18 04/07/18 04/07/18 06:44 21:28 17:58 POC Glucose 148 H 189 H 130 H 04/07/1818 04/07/18 17:31 11:31 07:16 POC Glucose 119 H 151 H 125 H Medical Necessity - Tobacco Use Smoking Status: Former smoker - he quit in 1994 Tobacco Use: Non-smoker Assessment/Plan All Active Problems Osteomyelitis of toe (Acute) Impressions 1. osteomyelitis of the distal Left great toe with non-healing ulceration - POD #1 S/P left hallux amputation -distal and proximal phalanx sent for pathology and micro 2. DM II - uncontrolled HGBA1C is 8.6 3. HTN 4. Hx of a Charcot foot on the right with TMA in the past 5. PVD - triphasic wave form on non-invasive PVR's to the ankle.....disease is limited to the digits 6. HLD 7. Normochromic normocytic anemia 8. Chronic renal failure stage III 9. Diabetic neuropathy Continue wound care and Zosyn. Await final cultures taken at the time of surgery. Dr. Hou is on the case. Anticipate that the wound will be closed on Friday and he can be discharged DC the IV fluids Code Visit Inpatient E&M: 91985 Subs Hosp L1
--- NOTE | 2018-04-08 07:29 | PCM.PN.SRG ---
Patient Problems: Active and Suspected Problems Osteomyelitis of toe (Acute) left great toe, distal phalnax Subjective: patient seen at bedside with no complaints. pain well controlled to left foot Objective: alert and orientated x 3. no acute distress. left foot s/p amputation with no signs of drainage. no redness to surgical site. no active bleeding noted. skin edges appear healthy with no signs of gangrene. stable, noninfected ulceration of left heel. - Physical Exam Vital Signs Temp Pulse Resp BP Pulse Ox 100.1 F H 74 18 158/81 H 97 04/08/18 06:15 04/08/18 06:15 04/08/18 06:15 04/08/18 06:15 04/08/18 06:15 Oxygen Delivery Method Room Air Weight: 109.2 kg Body Mass Index (BMI) 35.5 Finger Stick Blood Glucose 119 Intake and Output for Last 24 Hours 04/06/18 04/07/18 04/08/18 23:59 23:59 23:59 Intake Total 274 / 274 3342 / 3342 1350 / 1350 Output Total 210 / 210 1950 / 1950 1475 / 1475 Balance 64 / 64 1392 / 1392 -125 / -125 Laboratory Tests Past 24 Hrs 04/07/18 Unknown S.aureus Protein A PCR POSITIVE H MRSA (PCR) Negative POC Glucose 04/08/18 04/07/18 04/07/18 06:44 21:28 17:58 POC Glucose 148 H 189 H 130 H 04/07/18 04/07/18 17:31 11:31 POC Glucose 119 H 151 H Medical Necessity - Tobacco Use Smoking Status: Former smoker - he quit in 1994 Tobacco Use: Non-smoker Assessment/Plan All Active Problems Osteomyelitis of toe (Acute) patient s/p amputation of left hallux. awaiting cultures. continue with antibiotics per id. will plan for delayed closure of left great toe on friday morning. stable heel ulceration, left. continue with offloading. will order orxanne to left heel. I will place wound care consult for left heel.
[2018-04-08] MEDS: Ferrous Sulfate 325 MG Tablet PO (07:45)
[2018-04-08] MEDS: Glucerna Shake 120 ML LIQUID PO ×3 (07:45→17:00)
[2018-04-08] MEDS: Magnesium Hydroxide 30 ML UDC PO (07:45)
[2018-04-08] MEDS: Aspirin 81 MG TAB.CHEW PO (07:45)
[2018-04-08] MEDS: Insulin Lispro 100 UNIT/ML INSULN.PEN 12 UNIT SC ×3 (07:47→17:00)
[2018-04-08 09:46] VITALS: PULSE 74
[2018-04-08] MEDS: LINAGLIPTIN 5 MG TABLET PO (09:46)
[2018-04-08] MEDS: Furosemide 20 MG Tablet PO (09:46)
[2018-04-08] MEDS: Metoprolol(XL)Succ 50 MG Tablet PO (09:46)
[2018-04-08] MEDS: amLODIPine 5 MG Tablet PO (09:46)
[2018-04-08] MEDS: Fenofibrate 145 MG Tablet PO (09:47)
[2018-04-08] MEDS: Lisinopril 20 MG Tablet PO (09:47)
--- NOTE | 2018-04-08 11:16 | NURSING ---
Dr Ceballos in this am to irrigate wound. dressing was completed by Dr Ceballos this am. will leave in place. will monitor as needed. plan is for wound closure at the end of the week according to the progress notes. will take Cindi and have at bedside for the left heel wound.
[2018-04-08] MEDS: Insulin Lispro 100 UNIT/ML INSULN.PEN SQ ×3 (12:06→22:07)
[2018-04-08 12:15] LABS: Bedside Glucose 193 mg/dL (70-110)
[2018-04-08 13:58] VITALS: BP 173/88; PULSE 87; RESP 16; TEMP 37.6; O2SAT 94
--- NOTE | 2018-04-08 16:00 | PCM.PN.ID ---
Patient Problems: Active and Suspected Problems Osteomyelitis of toe (Acute) left great toe, distal phalnax Subjective: Feeling well, no pain s/p OR. No fever, no n/v/d. - Physical Exam General: Alert, Cooperative, No apparent distress Lungs: Clear to auscultation, Normal air movement Cardiovascular: Regular rate, Regular Rhythm Abdomen: Soft, Non Tender, Non-Distended Skin: No rashes Vital Signs Temp Pulse Resp BP Pulse Ox 99.6 F H 87 16 173/88 H 94 04/08/18 13:58 04/08/18 13:58 04/08/18 13:58 04/08/18 13:58 04/08/18 13:58 Oxygen Delivery Method Room Air Weight: 109.2 kg Body Mass Index (BMI) 35.5 Finger Stick Blood Glucose 119 Intake and Output for Last 24 Hours 04/06/18 04/07/18 04/08/18 23:59 23:59 23:59 Intake Total 274 / 274 3342 / 3342 2357 / 2357 Output Total 210 / 210 1950 / 1950 2600 / 2600 Balance 64 / 64 1392 / 1392 -243 / -243 Microbiology Past 72 Hours 04/07/18 Unknown Gram Stain - Final Tissue - Toe Wound Culture - Preliminary No growth-Final to follow 04/07/18 Unknown Gram Stain - Final Tissue Ulcer - Tissue Wound Culture - Preliminary No growth-Final to follow Laboratory Tests Past 24 Hrs 04/07/18 Unknown S.aureus Protein A PCR POSITIVE H MRSA (PCR) Negative POC Glucose 04/08/18 04/08/18 04/07/18 12:04 06:44 21:28 POC Glucose 193 H 148 H 189 H 04/07/18 04/07/18 17:58 17:31 POC Glucose 130 H 119 H Medical Necessity - Tobacco Use Smoking Status: Former smoker - he quit in 1994 Tobacco Use: Non-smoker Route of nutrition/ use of supplements: [] Nutritional Intake: [] IV Site: [] Mitchell Catheter: [] - Assessment/Plan Antibiotics: [] Assessment/Plan: [] Active and Suspected Problems Osteomyelitis of toe (Acute) left great toe, distal phalnax L 1st toe osteo with DM neuropathy - now s/p OR by Dr. Ceballos 04/07 for partial toe amp. MRSA pcr neg. Cont zosyn. Will follow.
[2018-04-08 17:00] LABS: Bedside Glucose 209 mg/dL (70-110)
[2018-04-08 20:22] VITALS: BP 154/73; PULSE 86; RESP 16; TEMP 37.2; O2SAT 94
[2018-04-08] MEDS: Atorvastatin Calcium 40 MG Tablet PO (22:07)
[2018-04-08] MEDS: 0.9% NaCl Peripheral Flush Adult/Peds IV (22:15)
[2018-04-08 22:26] LABS: Bedside Glucose 213 mg/dL (70-110)
--- NOTE | 2018-04-09 | BON_PTH ---
PATIENT: FINN TORRES LOC: MS2 U#:[id number] AGE/SX: 58/M ROOM: [facility] [place] RE04/06/[address]: Dr. Filomena Robbins MD : 1960 BED: 1 DIS: 04/11/2018 SPEC #: [id number] RECD: 04/10/18 14:38 STATUS: SOUMohinder REQ #: [id number] CANDIE: 04/09/18 00:[address]: Del Ceballos DEPT: SURGICAL PATHOLOGY RECD BY: Robin London ENTERED: 04/10/18 14:38 SP TYPE: Bone OTHR DR: DO Dr. Kashif Handley MD Dr. Matthew Testrake, DPM Dr. Fletcher Hou MD Tissues: A - Bone of foot, NOS Procedures: Decalcification bone/plaque Surgery Specimen Level III Comments: @ Ordering doctor for DEC edited from to @ afshan CHASE at 04/10/18 1526 @ Ordering doctor for SUIII edited from to @ by RENA at 04/10/18 1526 @ Submitting doctor edited from to @ by RENA at 04/10/18 1526 HEADER OPERATION: Left foot, great toe area, irrigation and wound closure PRE-OP DIAGNOSIS: Osteomyelitis left hallux TISSUE SUBMITTED: Left hallux, proximal phalanx MICROSCOPIC DIAGNOSIS Left hallux proximal phalanx, biopsy: A piece of bone, negative for acute osteomyelitis. SPECNER:francie 04/14/18 MICROSCOPIC DESCRIPTION Slides are reviewed. GROSS DESCRIPTION Received in fixative is one container labeled with the patient's name and designated left hallux, proximal phalanx. The specimen consists of a piece of duarte bone measuring 0.4 x 0.3 x 0.2 cm. The entire specimen is submitted in one cassette after decalcification. / SPENCER:francie 04/10/18 TC:4 CPT: 82640, 67717
[2018-04-09] MEDS: 0.9% NaCl Peripheral Flush Adult/Peds IV ×2 (02:42→05:58)
[2018-04-09 02:45] VITALS: BP 145/78; PULSE 70; RESP 16; TEMP 36.6; O2SAT 94
[2018-04-09] MEDS: Piperacil/Tazobactam 3.375 GM/50 ML ML IV ×2 (05:58→14:17)
--- NOTE | 2018-04-09 07:21 | PCM.PN.SRG ---
Patient Problems: Active and Suspected Problems Osteomyelitis of toe (Acute) left great toe, distal phalnax Subjective: patient seen this morning. no complaints of pain. no n/v/f/c. Objective: patient is alert and orientated x 3. no acute distress left hallux amputation with retained packing. no drainage, no active bleeding. no redness to amputation site. no signs of necrosis. skin is well hydrated. no local signs of infection. left heel has very superficial noninfected ulceration. no signs of infection. right foot with tma but no open wounds noted. cultures still pending to amputation site. - Physical Exam Vital Signs Temp Pulse Resp BP Pulse Ox 97.9 F 70 16 145/78 H 94 04/09/18 02:45 04/09/18 02:45 04/09/18 02:45 04/09/18 02:45 04/09/18 02:45 Oxygen Delivery Method Room Air Weight: 109.2 kg Body Mass Index (BMI) 35.5 Finger Stick Blood Glucose 119 Intake and Output for Last 24 Hours 04/07/18 04/08/18 04/09/18 23:59 23:59 23:59 Intake Total 3342 / 3342 2357 / 2357 636 / 636 Output Total 1950 / 1950 2600 / 2600 1100 / 1100 Balance 1392 / 1392 -243 / -243 -464 / -464 Microbiology Past 72 Hours 04/07/18 Unknown Gram Stain - Final Tissue - Toe Wound Culture - Preliminary No growth-Final to follow 04/07/18 Unknown Gram Stain - Final Tissue Ulcer - Tissue Wound Culture - Preliminary No growth-Final to follow POC Glucose 04/08/18 04/08/18 04/08/18 22:06 16:56 12:04 POC Glucose 213 H 209 H 193 H Medical Necessity - Tobacco Use Smoking Status: Former smoker - he quit in 1994 Tobacco Use: Non-smoker Assessment/Plan All Active Problems Osteomyelitis of toe (Acute) patient was examined and informed of current findings sterile irrigation performed at bedside today and new bandage applied continue with antibiotics per infectious disease will plan for delayed closure tomorrow. may require further bone resection pending culture. left heel ulceration appears stable. continue with offloading. wound team has examined patient and has recommended roxanne. continue. may benefit from skin substitue at discharge and modification of afo.
[2018-04-09 08:10] VITALS: BP 157/78; PULSE 72; RESP 18; TEMP 37.1; O2SAT 95
[2018-04-09 08:27] VITALS: PULSE 72
[2018-04-09] MEDS: Metoprolol(XL)Succ 50 MG Tablet PO (08:27)
[2018-04-09] MEDS: Aspirin 81 MG TAB.CHEW PO (08:27)
[2018-04-09] MEDS: Ferrous Sulfate 325 MG Tablet PO (08:27)
[2018-04-09] MEDS: amLODIPine 5 MG Tablet PO (08:27)
[2018-04-09] MEDS: Lisinopril 20 MG Tablet PO (08:27)
[2018-04-09] MEDS: Fenofibrate 145 MG Tablet PO (08:27)
[2018-04-09] MEDS: LINAGLIPTIN 5 MG TABLET PO (08:27)
[2018-04-09] MEDS: Furosemide 20 MG Tablet PO (08:28)
[2018-04-09] MEDS: Insulin Lispro 100 UNIT/ML INSULN.PEN 12 UNIT SC ×3 (08:30→16:11)
[2018-04-09] MEDS: Glucerna Shake 120 ML LIQUID PO ×3 (08:34→16:23)
[2018-04-09 09:06] LABS: Bedside Glucose 146 mg/dL (70-110)
--- NOTE | 2018-04-09 09:46 | NURSING ---
Dr Ceballos had been in this am and changed dressing. plan is for further surgery with wound closure tomorrow per Dr Ceballos.
[2018-04-09] MEDS: Insulin Lispro 100 UNIT/ML INSULN.PEN SQ ×3 (12:12→21:39)
[2018-04-09 14:11] VITALS: BP 150/72; PULSE 71; RESP 18; TEMP 36.9; O2SAT 95
[2018-04-09 14:21] LABS: Bedside Glucose 221 mg/dL (70-110)
--- NOTE | 2018-04-09 16:29 | PN.ID_ITS ---
Patient Problems: Active and Suspected Problems Osteomyelitis of toe (Acute) left great toe, distal phalnax Subjective: Feeling ok. Reports one day of L thumb MCP red swelling, mild soreness, no drainage. No fever. - Physical Exam General: Alert, Cooperative, No apparent distress Lungs: Clear to auscultation, Normal air movement Cardiovascular: Regular rate, Regular Rhythm Abdomen: Soft, Non Tender, Non-Distended Skin: - - L thumb MCP with 2 fluctuant, firm, mild tender pustules. Vital Signs Temp Pulse Resp BP Pulse Ox 98.4 F 71 18 150/72 H 95 04/09/18 14:11 04/09/18 14:11 04/09/18 14:11 04/09/18 14:11 04/09/18 14:11 Oxygen Delivery Method Room Air Weight: 109.2 kg Body Mass Index (BMI) 35.5 Finger Stick Blood Glucose 119 Intake and Output for Last 24 Hours 04/07/18 04/08/18 04/09/18 23:59 23:59 23:59 Intake Total 3342 / 3342 2357 / 2357 1718 / 1718 Output Total 1950 / 1950 2600 / 2600 2024 / 2024 Balance 1392 / 1392 -243 / -243 -307 / -307 Microbiology Past 72 Hours 04/07/18 Unknown Gram Stain - Final Tissue - Toe Wound Culture - Preliminary Staphylococcus species 04/07/18 Unknown Gram Stain - Final Tissue Ulcer - Tissue Wound Culture - Preliminary Staphylococcus species POC Glucose 04/09/18 04/09/18 04/08/18 12:11 08:16 22:06 POC Glucose 221 H 146 H 213 H 04/08/18 16:56 POC Glucose 209 H Medical Necessity - Tobacco Use Smoking Status: Former smoker - he quit in 1994 Tobacco Use: Non-smoker Route of nutrition/ use of supplements: [] Nutritional Intake: [] IV Site: [] Mitchell Catheter: [] - Assessment/Plan Antibiotics: [] Assessment/Plan: [] Active and Suspected Problems Osteomyelitis of toe (Acute) left great toe, distal phalnax L 1st toe osteo with DM neuropathy - now s/p OR by Dr. Ceballos 04/07 for partial toe amp. MSSA pcr (+) x2. Surg cx with staph. Narrow abx to cefazolin /flagyl. L thumb MCP pustules - recommend I&D. No sign of joint involvement. Will follow. D/w Dr. Chang.
[2018-04-09 16:46] LABS: Bedside Glucose 238 mg/dL (70-110)
[2018-04-09 19:59] VITALS: BP 150/79; PULSE 78; RESP 18; TEMP 37.4; O2SAT 97
[2018-04-09] MEDS: Acetaminophen 325 MG Tablet 650 MG PO (20:08)
[2018-04-09] MEDS: Cefazolin 2 GM in 0.9% Normal Saline 100 ML IV (21:38)
[2018-04-09] MEDS: Atorvastatin Calcium 40 MG Tablet PO (21:39)
[2018-04-09] MEDS: metroNIDAZOLE 500 MG Tablet PO (21:39)
[2018-04-09 22:11] LABS: Bedside Glucose 282 mg/dL (70-110)
[2018-04-10] VITALS (11 sets, daily range): BP systolic 133–163; BP diastolic 71–80; PULSE 65–87; RESP 16–18; TEMP 36.1–37.2; O2SAT 93–100; BMI 35.5
[2018-04-10 04:24] LABS: Hemoglobin 12.3 g/dl (13.0-16.5); Mean Corp Hgb Conc 32.4 g/gl (32-36); Mean Corpuscular Volume 83.5 fL (80-94); Mean Platelet Vol. 10.3 fl (6.2-12.0); Platelet Count 256 K/mm3 (150-450); RBC Distribution Width CV 13.5 % (11.6-14.6); RBC Distribution Width SD 40.8 fl (35.1-43.9); Red Blood Count 4.55 M/mm3 (4.6-6.2); White Blood Count 9.1 K/mm3 (4.4-11.0)
[2018-04-10 04:25] LABS: Scan Indicated on CBC? Y/N NO
[2018-04-10 04:48] LABS: Anion Gap 6 (5-15); BUN 19 mg/dL (7-18); BUN/Creat Ratio 13.2 RATIO (10-20); Calcium,Total 8.8 mg/dL (8.5-10.1); Chloride 102 mmol/L (98-107); Creatinine, Serum 1.44 mg/dL (0.70-1.30); EST Glomerular Filtration Rate 54 mL/min (>60); Est Glom Filt Rate - Afr Amer 65 mL/min (>60); Glucose 162 mg/dL (74-106); Sodium Level 139 mmol/L (136-145)
--- NOTE | 2018-04-10 05:52 | PCM.PROGNOTE ---
Patient Problems: Active and Suspected Problems Osteomyelitis of toe (Acute) left great toe, distal phalnax Subjective: Late Entry for 04/09 - computer was frozen Day #4 antibiotics for MSSA infection Left Hallux with osteomyelitis POD #2 Low grade fever today to 100.1 Systolic BP is mildly elevated BS's are starting to increase C/O 2 sore spots on the left thumb that are now raised.....enlarged since yesterday per patient however, I did not perceive any abnormality yesterday on my exam. Denies pain in the L axilla. No rash. No diarrhea. Pain adequately controlled. No mouth pain or lesions. Objective: PHYSICAL EXAM: GENERAL: alert, oriented X 3, Cooperative, NAD ORAL: moist mucosa, no mucosal lesions NECK: No JVD, supple, trachea midline LUNGS: CTA, symmetric chest expansion HEART: RRR, Normal S1 and S2, no rub, no gallop ABDOMEN: soft, NT, ND, BS present, no guarding with palpation EXTREMITIES: no edema, no cyanosis, no calf tenderness SKIN: No rashes, there are 2 blisters on the Left thumb. The bases are purple and they have whitish heads. One is rather firm to palpate and the other is fluctuant. They are tender to the touch NEUROLOGIC: no focal neurologic deficits PSYCH: appropriate, normal affect, pleasant - Physical Exam Vital Signs Temp Pulse Resp BP Pulse Ox 98.0 F 65 16 146/79 H 100 04/10/18 02:00 04/10/18 02:00 04/10/18 02:00 04/10/18 02:00 04/10/18 02:00 Oxygen Delivery Method Room Air Weight: 240 lb 11.916 oz Body Mass Index (BMI) 35.5 Finger Stick Blood Glucose 119 Intake and Output for Last 24 Hours 04/08/18 04/09/18 04/10/18 23:59 23:59 23:59 Intake Total 2357 / 2357 2793 / 2793 300 / 300 Output Total 2600 / 2600 2600 / 2600 700 / 700 Balance -243 / -243 193 / 193 -400 / -400 Microbiology Past 72 Hours 04/07/18 Unknown Gram Stain - Final Tissue - Toe Wound Culture - Preliminary Staphylococcus species 04/07/18 Unknown Gram Stain - Final Tissue Ulcer - Tissue Wound Culture - Preliminary Staphylococcus species Laboratory Tests Past 24 Hrs 04/10/18 04/10/18 04:08 04:08 WBC 9.1 RBC 4.55 L Hgb 12.3 L Hct 38.0 L MCV 83.5 MCH 27.0 MCHC 32.4 RDW 13.5 RDW Differential 40.8 Plt Count 256 MPV 10.3 Sodium 139 Potassium 4.0 Chloride 102 Carbon Dioxide 31.0 Anion Gap 6 BUN 19 H Creatinine 1.44 H Estim Creat Clear Calc 56.60 Est GFR (MDRD) Af Amer 65 Est GFR (MDRD) Non-Af 54 L BUN/Creatinine Ratio 13.2 Glucose 162 H Calcium 8.8 POC Glucose 04/09/18 04/09/18 04/09/18 21:38 16:09 12:11 POC Glucose 282 H 238 H 221 H 04/09/18 08:16 POC Glucose 146 H Medical Necessity - Tobacco Use Smoking Status: Former smoker - he quit in 1994 Tobacco Use: Non-smoker Assessment/Plan All Active Problems Osteomyelitis of toe (Acute) Impressions 1. osteomyelitis of the distal Left great toe with non-healing ulceration - POD #1 S/P left hallux amputation -distal and proximal phalanx sent for pathology and micro 2. DM II - uncontrolled HGBA1C is 8.6 3. HTN 4. Hx of a Charcot foot on the right with TMA in the past 5. PVD - triphasic wave form on non-invasive PVR's to the ankle.....disease is limited to the digits 6. HLD 7. Normochromic normocytic anemia 8. Chronic renal failure stage III 9. Diabetic neuropathy 10. new pustules on the left thumb - appear to be infected Continue wound care and Zosyn. Await final cultures taken at the time of surgery. Dr. Hou is on the case. Recheck lab in the AM will discuss whether or not to open the apparent pustules with Dr. Hou - temp is increased and the blood sugars are going up Code Visit Inpatient E&M: 22615 Subs Hosp L2
[2018-04-10] MEDS: Cefazolin 2 GM in 0.9% Normal Saline 100 ML IV ×3 (05:56→21:56)
--- NOTE | 2018-04-10 06:18 | PN_ITS ---
Patient Problems: Active and Suspected Problems Osteomyelitis of toe (Acute) left great toe, distal phalnax Subjective: Day #5 antibiotics - Ancef for MSSA and Flagyl Postoperative day #3 VSS T max was 100.1 about 24 hours ago and the fever has been down since then LAB: White blood cell count is normal at 9.1. Hemoglobin is 12.3 and stable. Creatinine is 1.44 today, down from 1.85 at admission. Discussed whether or not to open the pustules on the Left thumb with Dr. Hou and he thinks they should be I&D'd. The pustules were opened and there was serous drainage, small amount.....not enough to do a PCR but enough to culture. GM stain had 1+ WBC's and no organisms. Prior to the opening the pain had already decreased. Cultures from the Left op site were again sent today. Denies diarrhea, painful swallowing, sores in his mouth. No cough, shortness of breath, abdominal pain. - Physical Exam General: Alert, Oriented x3, Cooperative, No apparent distress Oral: Moist Mucosa, No Gingival or Mucosal Lesions/ Ulcerations Lungs: Clear to auscultation Cardiovascular: Regular rate, Regular Rhythm, Normal S1, Normal S2, No Gallop Abdomen: Bowel Sounds Present, Soft, Non Tender, Non-Distended Extremities: - - Left foot is dressed and I did not examine.......please see Dr. Ceballos's op report. Skin: No rashes Vital Signs Temp Pulse Resp BP Pulse Ox 98.0 F 65 16 146/79 H 100 04/10/18 02:00 04/10/18 02:00 04/10/18 02:00 04/10/18 02:00 04/10/18 02:00 Oxygen Delivery Method Room Air Weight: 240 lb 11.916 oz Body Mass Index (BMI) 35.5 Finger Stick Blood Glucose 119 Intake and Output for Last 24 Hours 04/08/18 04/09/18 04/10/18 23:59 23:59 23:59 Intake Total 2357 / 2357 2793 / 2793 300 / 300 Output Total 2600 / 2600 2600 / 2600 700 / 700 Balance -243 / -243 193 / 193 -400 / -400 Microbiology Past 72 Hours 04/07/18 Unknown Gram Stain - Final Tissue - Toe Wound Culture - Preliminary Staphylococcus species 04/07/18 Unknown Gram Stain - Final Tissue Ulcer - Tissue Wound Culture - Preliminary Staphylococcus species Laboratory Tests Past 24 Hrs 04/10/18 04/10/18 04:08 04:08 WBC 9.1 RBC 4.55 L Hgb 12.3 L Hct 38.0 L MCV 83.5 MCH 27.0 MCHC 32.4 RDW 13.5 RDW Differential 40.8 Plt Count 256 MPV 10.3 Sodium 139 Potassium 4.0 Chloride 102 Carbon Dioxide 31.0 Anion Gap 6 BUN 19 H Creatinine 1.44 H Estim Creat Clear Calc 56.60 Est GFR (MDRD) Af Amer 65 Est GFR (MDRD) Non-Af 54 L BUN/Creatinine Ratio 13.2 Glucose 162 H Calcium 8.8 POC Glucose 04/09/18 04/09/18 04/09/18 21:38 16:09 12:11 POC Glucose 282 H 238 H 221 H 04/09/18 08:16 POC Glucose 146 H Medical Necessity - Tobacco Use Smoking Status: Former smoker - he quit in 1994 Tobacco Use: Non-smoker Assessment/Plan All Active Problems Osteomyelitis of toe (Acute) Impressions 1. osteomyelitis of the distal Left great toe with non-healing ulceration - S/ P left hallux amputation -distal and proximal phalanx sent for pathology and micro 2. DM II - uncontrolled HGBA1C is 8.6 3. HTN 4. Hx of a Charcot foot on the right with TMA in the past 5. PVD - triphasic wave form on non-invasive PVR's to the ankle.....disease is limited to the digits 6. HLD 7. Normochromic normocytic anemia 8. Chronic renal failure stage III 9. Diabetic neuropathy 10. new pustules on the left thumb - appear to be infected...only a small amount of serous drainage today. fluid sent for culture. !+ WBC's on the GM stain with no organisms I&D of pustules on the Left thumb today and do a PCR and a GM stain and culture - not enough fluid for PCR Going to surgery to close the incision at site of Left hallux amputation Continue the Ancef for now. Increase the AM Lantus and increase the SSI to medium DC when Dr. Ceballos feels the pt is ready...hopefully in the AM D/W Dr. Hou - plan is for DC on at least 6 weeks of Doxycycline Code Visit Inpatient E&M: [id number] Subs Hosp L2
[2018-04-10 07:15] LABS: Bedside Glucose 149 mg/dL (70-110)
[2018-04-10] MEDS: Metoprolol(XL)Succ 50 MG Tablet PO (07:21)
--- NOTE | 2018-04-10 08:25 | RAD_ITS ---
STUDY: X-RAY LEFT FOOT, RIGHT TOE REASON FOR EXAM: Male, 58 years old. Debridement and irrigation. TECHNIQUE: Intraoperative view(s) of the toe were obtained. COMPARISON: None. FINDINGS: The patient is status post amputation of the distal aspect of the proximal phalanx and amputation of the distal phalanx of the great toe. Postoperative soft tissue changes. RAD/Foot 2 Views IMPRESSION: Amputation of the distal aspect of the proximal phalanx and amputation of the distal phalanx of the great toe with postoperative soft tissue changes. Electronically Signed: Sahil Palomo MD at 10:11 EDT Tel [phone], Service support ,
--- NOTE | 2018-04-10 09:25 | NURSING ---
Pt. taken off unit at 0625 for surgery.
--- NOTE | 2018-04-10 09:35 | PCM.IMDPSTOP ---
Immediate Post-Op Note Date of Procedure: 04/10/18 Primary Surgeon/Physician: Del Ceballos DPM furniture technician: None Pre-Operative Diagnosis: osteomyelitis, left hallux distal phalanx Post-Operative Diagnosis: resection of bone, left hallux proximal phalanx. delayed closure, left foot Surgery/Procedure Performed:: Left hallux amputation Description of Surgical Findings:: good healthy bone. no purulence. wound closed today there is evidence of rubbing on left 1st and 5th metatarsal that was not present yesterday. no ulceration noted. Estimated Blood Loss: <15 cc Specimen's removed: left hallux distal phalanx: Pathology and micro. Left hallux proximal phalanx: pathology and micro Type of Anesthesia:: Local MAC
[2018-04-10] MEDS: Fenofibrate 145 MG Tablet PO (11:15)
[2018-04-10] MEDS: LINAGLIPTIN 5 MG TABLET PO (11:15)
[2018-04-10] MEDS: amLODIPine 5 MG Tablet PO (11:15)
[2018-04-10] MEDS: Aspirin 81 MG TAB.CHEW PO (11:15)
[2018-04-10] MEDS: Furosemide 20 MG Tablet PO (11:16)
[2018-04-10] MEDS: Ferrous Sulfate 325 MG Tablet PO (11:16)
[2018-04-10] MEDS: Lisinopril 20 MG Tablet PO (11:16)
[2018-04-10] MEDS: Glucerna Shake 120 ML LIQUID PO ×2 (11:20→16:03)
[2018-04-10 11:25] LABS: Bedside Glucose 134 mg/dL (70-110)
[2018-04-10] MEDS: Insulin Lispro 100 UNIT/ML INSULN.PEN 12 UNIT SC ×2 (12:34→18:32)
[2018-04-10] MEDS: 0.9% NaCl Peripheral Flush Adult/Peds IV (14:47)
[2018-04-10] MEDS: metroNIDAZOLE 500 MG Tablet PO ×2 (14:50→21:59)
--- NOTE | 2018-04-10 16:02 | PCM.PN.ID ---
Patient Problems: Active and Suspected Problems Osteomyelitis of toe (Acute) left great toe, distal phalnax Subjective: Feeling ok, no fever, no n/v/d, hand better. - Physical Exam General: Alert, Cooperative, No apparent distress Lungs: Clear to auscultation, Normal air movement Cardiovascular: Regular rate, Regular Rhythm Abdomen: Soft, Non Tender, Non-Distended Skin: - - L 1st mtp nodule Vital Signs Temp Pulse Resp BP Pulse Ox 98.6 F 76 16 139/71 H 93 04/10/18 14:38 04/10/18 14:38 04/10/18 14:38 04/10/18 14:38 04/10/18 14:38 Oxygen Delivery Method Room Air Weight: 109.2 kg Body Mass Index (BMI) 35.5 Finger Stick Blood Glucose 119 Intake and Output for Last 24 Hours 04/08/18 04/09/18 04/10/18 23:59 23:59 23:59 Intake Total 2357 / 2357 2793 / 2793 300 / 300 Output Total 2600 / 2600 2600 / 2600 1125 / 1125 Balance -243 / -243 193 / 193 -825 / -825 Microbiology Past 72 Hours 04/10/18 11:00 Gram Stain - Final Wound - Hand 04/10/18 Unknown Gram Stain - Final Biopsy - Toe 04/07/18 Unknown Gram Stain - Final Tissue - Toe Wound Culture - Final Staphylococcus simulans Anaerobic Culture - Preliminary No growth in 48 hours. 04/07/18 Unknown Gram Stain - Final Tissue Ulcer - Tissue Wound Culture - Final Staphylococcus simulans Anaerobic Culture - Preliminary Checking for anaerobes, further studies to follow. Laboratory Tests Past 24 Hrs 04/10/18 04/10/18 04:08 04:08 WBC 9.1 RBC 4.55 L Hgb 12.3 L Hct 38.0 L MCV 83.5 MCH 27.0 MCHC 32.4 RDW 13.5 RDW Differential 40.8 Plt Count 256 MPV 10.3 Sodium 139 Potassium 4.0 Chloride 102 Carbon Dioxide 31.0 Anion Gap 6 BUN 19 H Creatinine 1.44 H Estim Creat Clear Calc 56.60 Est GFR (MDRD) Af Amer 65 Est GFR (MDRD) Non-Af 54 L BUN/Creatinine Ratio 13.2 Glucose 162 H Calcium 8.8 POC Glucose 04/10/18 04/10/18 04/09/18 11:14 06:53 21:38 POC Glucose 134 H 149 H 282 H 04/09/18 16:09 POC Glucose 238 H Medical Necessity - Tobacco Use Smoking Status: Former smoker - he quit in 1994 Tobacco Use: Non-smoker Route of nutrition/ use of supplements: [] Nutritional Intake: [] IV Site: [] Mitchell Catheter: [] - Assessment/Plan Antibiotics: [] Assessment/Plan: [] Active and Suspected Problems Osteomyelitis of toe (Acute) left great toe, distal phalnax L 1st toe osteo with DM neuropathy - now s/p OR by Dr. Ceballos 04/07 for partial toe amp. MSSA pcr (+) x2. Surg cx with staph simulans. Narrowed abx to cefazolin/flagyl. Taken for closure today 04/10, gram stain with GPC. Plan will be for 6 weeks po doxy 100mg bid at discharge. L thumb MCP pustules - cx and pcr sent. Will follow. D/w Dr. Chang.
[2018-04-10 16:10] LABS: Bedside Glucose 289 mg/dL (70-110)
[2018-04-10 17:55] LABS: Bedside Glucose 292 mg/dL (70-110)
[2018-04-10] MEDS: Insulin Lispro 100 UNIT/ML INSULN.PEN SQ ×2 (18:33→21:59)
--- NOTE | 2018-04-10 19:35 | NURSING ---
lab called and stated that the MRSA order did not have a source listed- and that if MRSA of left thumb wound was needed a new sample would need to be collected. This RN completed same and sent to lab.
[2018-04-10 20:23] LABS: M R Staph aureus DNA By PCR Negative (Negative); Probe Check PASS; Specimen Processing Control PASS; Staph aureus DNA By PCR NEGATIVE (Negative)
[2018-04-10 22:00] LABS: Bedside Glucose 232 mg/dL (70-110)
[2018-04-10] MEDS: Atorvastatin Calcium 40 MG Tablet PO (22:01)
[2018-04-11 02:30] VITALS: BP 152/78; PULSE 74; RESP 16; TEMP 36.9; O2SAT 96
[2018-04-11] MEDS: Cefazolin 2 GM in 0.9% Normal Saline 100 ML IV ×2 (06:45→13:07)
[2018-04-11] MEDS: metroNIDAZOLE 500 MG Tablet PO ×2 (06:45→13:09)
[2018-04-11 06:51] LABS: Bedside Glucose 142 mg/dL (70-110)
--- NOTE | 2018-04-11 07:54 | RAD_ITS ---
STUDY: X-RAY - LEFT FOOT CLINICAL: Male, 58 years old. Osteomyelitis. Hallux amputation. Debridement. TECHNIQUE: 3 view(s) of the foot. COMPARISON: 04/07/2018 FINDINGS: There are stable postsurgical changes from amputation of the first toe at the level of the proximal phalanx. There is a small amount of subcutaneous air noted in the soft tissues of the first toe, likely related to the patient's recent procedure. There is no acute fracture or dislocation. There are stable degenerative changes. RAD/Foot min 3 Views IMPRESSION: Stable postsurgical changes from amputation of the first toe at the level of the proximal phalanx. Small amount of subcutaneous air in the soft tissues, likely related to the patient's recent procedure. Electronically Signed: Alex Godinez, at 9:51 EDT Tel , Service support ,
--- NOTE | 2018-04-11 07:59 | PN.SURG_ITS ---
Patient Problems: Active and Suspected Problems Osteomyelitis of toe (Acute) left great toe, distal phalnax Subjective: Patient seen at bedside no complaints. no pain. no n/v/f/c. Objective: Patient is alert and orientated x 3. No acute distress Surgical incision to left hallux amputation is approximated with no tension along incision. there is no redness, no drainage, no local signs of infection. left hallux appears healthy and stable. There is very superficial, ~4 mm ulceration of left posterior heel. no local signs of infection. There is improved areas of pressure of left 1st and 5th metatarsal head with no overt skin break down or signs of infection. cultures from 04/07: staph simulans - Physical Exam Vital Signs Temp Pulse Resp BP Pulse Ox 98.4 F 74 16 152/78 H 96 04/11/18 02:30 04/11/18 02:30 04/11/18 02:30 04/11/18 02:30 04/11/18 02:30 Oxygen Delivery Method Room Air Weight: 109.2 kg Body Mass Index (BMI) 35.5 Finger Stick Blood Glucose 119 Intake and Output for Last 24 Hours 04/09/18 04/10/18 04/11/18 23:59 23:59 23:59 Intake Total 2793 / 2793 1180 / 1180 1361 / 1361 Output Total 2600 / 2600 1625 / 1625 1575 / 1575 Balance 193 / 193 -445 / -445 -214 / -214 Microbiology Past 72 Hours 04/10/18 11:00 Gram Stain - Final Wound - Hand 04/10/18 Unknown Gram Stain - Final Biopsy - Toe 04/07/18 Unknown Gram Stain - Final Tissue - Toe Wound Culture - Final Staphylococcus simulans Anaerobic Culture - Preliminary No growth in 48 hours. 04/07/18 Unknown Gram Stain - Final Tissue Ulcer - Tissue Wound Culture - Final Staphylococcus simulans Anaerobic Culture - Preliminary Checking for anaerobes, further studies to follow. Laboratory Tests Past 24 Hrs 04/10/18 18:30 S.aureus Protein A PCR NEGATIVE MRSA (PCR) Negative POC Glucose 04/11/18 04/10/18 04/10/18 06:42 21:54 17:48 POC Glucose 142 H 232 H 292 H 04/10/18 04/10/18 16:02 11:14 POC Glucose 289 H 134 H Medical Necessity - Tobacco Use Smoking Status: Former smoker - he quit in 1994 Tobacco Use: Non-smoker Assessment/Plan All Active Problems Osteomyelitis of toe (Acute) Patient was examined and informed of current findings. We discussed his amputation of left hallux. It appears stable, no clinical signs of infection. Patient was recommended doxycycline by infectious disease for duration of 6 weeks. if infectious disease approves discharge, I feel this patient is stable for discharge. He will go home with surgical shoe and recommended to use cane for assisted heel weightbearing. I will have patient bandage the toe every day with betadine and lightly applied callie. Of note, patient has either restless leg syndrome or profound neuropathy that has led to pressure on the lateral side of his foot. Despite offloading these areas, he has what appears to be rubbing. Certainly, he has similar issue in his had so it could be similar. Given these findings, I have recommended not bandaging the entire foot, rather, I will have him apply betadine to his left 1st and 5th metatarsal and duoderm padding. He will monitor these closely. there is no skin breakdown and the pressure areas vs rubbing appear improved since yesterday. Patient will use foam cradle boots at home. he was informed that if this breaks down, he could be at risk of ulceration/amputation. the tete of concern appear stable. Ulceration of left heel is stable. continue with roxanne. I would hold on brace for now. I would recommend boot with heel lift. If he does not have this , I can get at my office at follow-up friday or friday. patient ok for discharge from podiatry stand point
--- NOTE | 2018-04-11 08:00 | PCM.OPRPT ---
Report of Operation Date of Procedure: 04/10/18 Pre-Operative Diagnosis: osteomyelitis, left hallux distal phalanx Post-Operative Diagnosis: resection of bone, left hallux proximal phalanx. delayed closure, left foot Surgery/Procedure Performed:: Left hallux amputation Description of Surgical Findings:: good healthy bone. no purulence. wound closed today there is evidence of rubbing on left 1st and 5th metatarsal that was not present yesterday. no ulceration noted. reprographics associate: None Type of Anesthesia:: Local MAC Specimen's removed: left hallux proximal phalanx sent for pathology and micro Estimated Blood Loss (mL): <5 cc Description of Procedure: Patient is a pleasant 58 year old male who has osteomyelitis of left hallux. He has mri from [facility] that shows osteomyelitis of left hallux distal phalanx. He underwent amputation of left hallux distal phalanx on 04/07. He is currently on antibiotics by ID. Cultures thus far show staph simulans on distal phalanx as well as staph simulans on proximal phalanx. I have discussed the presence of staph simulans on proximal phalanx. I have discussed performing delayed closure and keeping the proximal phalanx and requiring antibiotics at discharge vs performing 1st ray amputation and attempting surgical clearance. I have discussed advantages of both procedures. by salvaging the toe, he still has his 1st mtpj for balance. By performing 1st ray amputation, he can potentially get a surgical elimination of infection. after discussion, patient has elected for delayed closure and salvaging the great toe. I have proposed delayed closure with resection of bone as needed. I have discussed risks of this procedure not limited to infection, pain, swelling, bleeding, failure to eliminate infection requiring antibiotics, need for more proximal amputation, wound dehisence resulting in need for advanced wound care, cardiac arrest, dvt, . patient understands risks and consents to proceed. patient was transferred to operating room and placed on operating table in supine position. he was placed under mac anesthesia. dressings were removed. of note, patient has what appears to be friction developing along 1st ray and 5th ray but no overt skin breakdown. these were not there on 04/09 dressing change. the suture was removed prior to prepping of the toe. the foot was prepped and draped in usual aseptic technique. time out was performed making note of procedure and personal involved. the distal dorsal and plantar skin margins was debrided. hemostasis was achieved with topical thrombin and cautery. using a sagittal saw, additional bone was resected to allow closure without tension. pulse lavage was performed. a sample of remaining proximal phalanx was sent for pathology and micro. wound edges were debrided of all prominent skin/dog ears. skin incision was closed wth 3-0 nylon in a deep to superficial technique. no vicryl was used given presence of infection. dressing was only applied to great toe to avoid rubbing on the newly developed areas of pressure. betadine applied to areas of pressure and will use duoderm. he is to continue with antibiotic he is to ambulate to left heel with cane possible discharge once antibiotics final patient transferred to pac[facility] in stable condition.
[2018-04-11 08:26] LABS: Absolute Lymphocyte Count 1.56 X10^3/ul (0.83-4.51); Absolute Neutrophil Count 6.6 X10^3/uL (2.0-7.7); Basophil# 0.03 X10^3/uL; Basophil% 0.3 % (0-1); Eosinophils% 2.2 % (0-5); Hematocrit 38.5 % (40-54); Hemoglobin 12.8 g/dl (13.0-16.5); Lymphocyte # 1.56 X10^3/ul (4.0); Lymphocyte % 16.8 % (19-41); Mean Corp Hgb Conc 33.2 g/gl (32-36); Mean Corpuscular Hgb 27.8 pg (27.0-32.0); Mean Corpuscular Volume 83.7 fL (80-94); Monocyte# 0.83 X10^3/uL; Neutrophil # 6.62 X10^3/uL (2.7-7.7); Neutrophil % 71.4 % (47-70); Platelet Count 298 K/mm3 (150-450); RBC Distribution Width CV 13.5 % (11.6-14.6); RBC Distribution Width SD 40.9 fl (35.1-43.9); White Blood Count 9.3 K/mm3 (4.4-11.0)
[2018-04-11 08:34] LABS: Anion Gap 6 (5-15); BUN 20 mg/dL (7-18); BUN/Creat Ratio 14.4 RATIO (10-20); Calcium,Total 8.8 mg/dL (8.5-10.1); Chloride 102 mmol/L (98-107); Creatinine, Serum 1.39 mg/dL (0.70-1.30); EST Glomerular Filtration Rate 56 mL/min (>60); Est Glom Filt Rate - Afr Amer 68 mL/min (>60); Estimated Creatinine Clearance 58.63 ml/min; Glucose 149 mg/dL (74-106); Potassium 4.2 mmol/L (3.5-5.1); Sodium Level 138 mmol/L (136-145)
[2018-04-11 08:36] LABS: POSITIVE COUNT NO; POSITIVE DIFFERENTIAL NO; POSITIVE MORPHOLOGY NO
[2018-04-11 09:00] VITALS: BP 146/82; PULSE 73; RESP 14; TEMP 36.9; O2SAT 96
[2018-04-11] MEDS: Insulin Lispro 100 UNIT/ML INSULN.PEN 12 UNIT SC ×2 (09:36→11:51)
[2018-04-11] MEDS: Ferrous Sulfate 325 MG Tablet PO (09:39)
[2018-04-11 09:40] VITALS: PULSE 73
[2018-04-11] MEDS: Furosemide 20 MG Tablet PO (09:40)
[2018-04-11] MEDS: amLODIPine 5 MG Tablet PO (09:40)
[2018-04-11] MEDS: Metoprolol(XL)Succ 50 MG Tablet PO (09:40)
[2018-04-11] MEDS: Aspirin 81 MG TAB.CHEW PO (09:40)
[2018-04-11] MEDS: Fenofibrate 145 MG Tablet PO (09:41)
[2018-04-11] MEDS: LINAGLIPTIN 5 MG TABLET PO (09:41)
[2018-04-11] MEDS: Lisinopril 20 MG Tablet PO (09:41)
[2018-04-11] MEDS: Glucerna Shake 120 ML LIQUID PO ×2 (09:45→11:53)
--- NOTE | 2018-04-11 09:51 | PCM.PN.HOSP ---
Subjective: Patient is a 58-year-old male admitted and managed for osteomyelitis of his left hallux. MRI from [facility] showed osteomyelitis of the left hallux distal phalanx. He underwent amputation of the left hallux distal phalanx on 717 and cultures showed staph stimulants distal phalanx as well as staph stimulants and proximal phalanx. He had amputation of the left hallux proximal phalanx on 04/10/2018. He has remained stable. Patient seen and examined this morning. He was lying comfortably in bed. Pain in foot at site of surgery was well controlled. He had no fever or chills, no cough or chest pain, no shortness of breath, no abdominal pain, and no diarrhea vomiting. Review of systems otherwise negative. Vitals/I&O's: Vital Signs Temp Pulse Resp BP Pulse Ox 98.4 F 73 14 146/82 H 96 04/11/18 09:00 04/11/18 09:40 04/11/18 09:00 04/11/18 09:00 04/11/18 09:00 Oxygen Delivery Method Room Air Weight: 240 lb 11.916 oz Body Mass Index (BMI) 35.5 Finger Stick Blood Glucose 119 Intake and Output for Last 24 Hours 04/09/18 04/10/18 04/11/18 23:59 23:59 23:59 Intake Total 2793 / 2793 1180 / 1180 1361 / 1361 Output Total 2600 / 2600 1625 / 1625 1575 / 1575 Balance 193 / 193 -445 / -445 -214 / -214 General: Alert, Oriented x3, Cooperative, No apparent distress HEENT: Atraumatic, PERRLA, EOMI, Normocephalic Oral: Moist Mucosa Neck: Supple, No JVD, Negative Carotid Bruits Lungs: Clear to auscultation, Normal air movement, No rhonchi, No wheeze, No rales Cardiovascular: Regular rate, Regular Rhythm, Normal S1, Normal S2, No murmurs Abdomen: Bowel Sounds Present, Soft, Non Tender, Non-Distended, No Hepato-splenomegaly Extremities: No clubbing, No cyanosis, No edema, Capillary Refill Less than 3 Seconds, - - left hallux dressing is clean and dry Skin: No rashes Musculoskeletal: No Tenderness to Palpation of Joints or Extremities, No Muscle Wasting Lymphatic: No Cervical, Supraclavicular, or Inguinal Adenopathy Neurological: Cranial nerves II-XII grossly intact, Motor Exam 5/5 strength throughout Psych/Mental Status: Normal Affect, Appropriate, Alert and oriented to time, place, person, mood and affect Microbiology Past 72 Hours 04/10/18 11:00 Wound - Hand Gram Stain - Final 04/10/18 11:00 Wound - Hand Wound Culture - Preliminary No growth-Final to follow 04/10/18 Unknown Biopsy - Toe Gram Stain - Final 04/10/18 Unknown Biopsy - Toe Wound Culture - Preliminary No growth-Final to follow 04/07/18 Unknown Tissue Ulcer - Tissue Gram Stain - Final 04/07/18 Unknown Tissue Ulcer - Tissue Wound Culture - Final Staphylococcus simulans 04/07/18 Unknown Tissue Ulcer - Tissue Anaerobic Culture - Final No anaerobic bacteria isolated. 04/07/18 Unknown Tissue - Toe Gram Stain - Final 04/07/18 Unknown Tissue - Toe Wound Culture - Final Staphylococcus simulans 04/07/18 Unknown Tissue - Toe Anaerobic Culture - Preliminary No growth in 48 hours. Laboratory Results 04/10/18 11:14: POC Glucose 134 H 04/10/18 16:02: POC Glucose 289 H 04/10/18 17:48: POC Glucose 292 H 04/10/18 18:30: S.aureus Protein A PCR NEGATIVE, MRSA (PCR) Negative 04/10/18 21:54: POC Glucose 232 H 04/11/18 06:42: POC Glucose 142 H 04/11/18 08:02: WBC 9.3, RBC 4.60, Hgb 12.8 L, Hct 38.5 L, MCV 83.7, MCH 27.8, MCHC 33.2, RDW 13.5, RDW Differential 40.9, Plt Count 298, MPV 11.0, Immature Gran % (Auto) 0.300, Neut % (Auto) 71.4 H, Lymph % (Auto) 16.8 L, [place] % (Auto) 9.0, Eos % (Auto) 2.2, Baso % (Auto) 0.3, Absolute Neuts (auto) 6.6, Absolute Lymphs (auto) 1.56, Total Counted Not Reportable 04/11/18 08:02: Sodium 138, Potassium 4.2, Chloride 102, Carbon Dioxide 30.0, Anion Gap 6, BUN 20 H, Creatinine 1.39 H, Estim Creat Clear Calc 58.63, Est GFR (MDRD) Af Amer 68, Est GFR (MDRD) Non-Af 56 L, BUN/Creatinine Ratio 14.4, Glucose 149 H, Calcium 8.8 Current Medications Acetaminophen (Tylenol) 650 mg PO Q6H PRN PRN PRN Reason: Mild Pain (scale 0-3)/T>100.7 Last Admin: 04/09/18 20:08 Dose: 650 mg Amlodipine Besylate (Norvasc) 5 mg PO DAILY [facility] Last Admin: 04/11/18 09:40 Dose: 5 mg Aspirin (Aspirin, Baby) 81 mg PO DAILY@0800 [facility] Last Admin: 04/11/18 09:40 Dose: 81 mg Atorvastatin Calcium (Lipitor) 40 mg PO QHS [facility] Last Admin: 04/10/18 22:01 Dose: 40 mg Bisacodyl (Dulcolax) 10 mg PO DAILY PRN PRN PRN Reason: Constipation Fenofibrate (Tricor) 145 mg PO DAILY [facility] Last Admin: 04/11/18 09:41 Dose: 145 mg Ferrous Sulfate (Ferrous Sulfate) 325 mg PO DAILY@0800 [facility] Last Admin: 04/11/18 09:39 Dose: 325 mg Furosemide (Lasix) 20 mg PO DAILY [facility] Last Admin: 04/11/18 09:40 Dose: 20 mg Cefazolin Sodium 2 gm/ Sodium (Chloride) 110 mls @ 150 mls/hr IV Q8 [facility] Last Admin: 04/11/18 06:45 Dose: 150 mls/hr Insulin Glargine (Lantus (Bkc)) 38 units SC DAILY [facility] Last Admin: 04/11/18 09:38 Dose: 38 units Insulin Human Lispro (Humalog Kwikpen (Bkc)) 12 unit SC TIDCM [facility] Last Admin: 04/11/18 09:36 Dose: 12 units Insulin Human Lispro (Humalog Kwikpen (Bkc)) 0 unit SQ ACHS [facility] PRN Reason: Protocol Last Admin: 04/11/18 06:45 Dose: Not Given Linagliptin (Tradjenta) 5 mg PO DAILY [facility] Last Admin: 04/11/18 09:41 Dose: 5 mg Lisinopril (Zestril) 20 mg PO DAILY [facility] Last Admin: 04/11/18 09:41 Dose: 20 mg Magnesium Hydroxide (Milk Of Magnesia) 30 ml PO DAILY PRN PRN PRN Reason: Constipation Last Admin: 04/08/18 07:45 Dose: 30 ml Metoprolol Succinate (Toprol Xl (Beta Stanislaw)) 50 mg PO DAILY [facility] Last Admin: 04/11/18 09:40 Dose: 50 mg Metronidazole (Flagyl) 500 mg PO TID [facility] Last Admin: 04/11/18 06:45 Dose: 500 mg Morphine Sulfate () 2 - 4 mg IV Q3H PRN PRN PRN Reason: Severe Pain (pain scale 6-10) Morphine Sulfate () 2 - 4 mg IV Q3H PRN PRN PRN Reason: Severe Pain (pain scale 6-10) Nutritional Formula (Lactose Free) (Glucerna Shake) 120 ml PO TIDCM [facility] Last Admin: 04/11/18 09:45 Dose: 120 ml Ondansetron HCl (Zofran) 4 mg IV Q8H PRN PRN PRN Reason: Nausea Oxycodone HCl (Oxyir) 5 mg PO Q4H PRN PRN PRN Reason: Moderate Pain (pain scale 4-5) Sodium Chloride () 5 - 30 ml IV UD PRN PRN Reason: SALINE FLUSH Last Admin: 04/10/18 14:47 Dose: 10 ml Medical Necessity - Tobacco Use Smoking Status: Former smoker - he quit in 1994 Tobacco Use: Non-smoker Assessment/Plan All Active Problems Osteomyelitis of toe (Acute) 58-year-old male being managed for osteomyelitis of the left distal great toe status post amputation of the left hand looks 1. Osteomyelitis of the left great toe s/p left hallux amputation stable. Hzs no complaints. pathology and microbiology of left great toe grew Staph simulans; fungal cultures pending on IV Ancef and PO metronidazole ID on board; for PO doxycycline x 6 weeks. podiatry on board; will discuss with Dr Ceballos about possible dc. 2. Left thumb pustules s/p I&D- POd 1 gram stain was negative. not enough fluid for culture. wound cultures pending. Patient is stable. 3. DM2 with neuropathy poorly controlled. A1C was 8.6 on admisison. On lantus 38IU daily and lispro 12IU tidwm, as well as ISS Accuchecks ACHS 4. HTN: fairly controlled. On amlodipine and metoprolol 5. Hyperlipidemia: Stable. On statin and fenofibrate. 6.History of Charcot Foot s/p Right foot TMA: stable 7. PAD: on statin, aspirin. 8. CKD 3: stable. Cr is ~ 1.3 today. will monitor DVT prophylaxis: SCDs Disposition: DC home today on PO doxycycline 100mg bid x 6 weeks. I Code Visit Inpatient E&M: 94937 Subs Hosp L2
--- NOTE | 2018-04-11 10:04 | PN_ITS ---
Subjective: Patient is a 58-year-old male admitted and managed for osteomyelitis of his left hallux. MRI from [facility] showed osteomyelitis of the left hallux distal phalanx. He underwent amputation of the left hallux distal phalanx on 717 and cultures showed staph stimulants distal phalanx as well as staph stimulants and proximal phalanx. He had amputation of the left hallux proximal phalanx on 04/10/2018. He has remained stable. Patient seen and examined this morning. He was lying comfortably in bed. Pain in foot at site of surgery was well controlled. He had no fever or chills, no cough or chest pain, no shortness of breath, no abdominal pain, and no diarrhea vomiting. Review of systems otherwise negative. Vitals/I&O's: Vital Signs Temp Pulse Resp BP Pulse Ox 98.4 F 73 14 146/82 H 96 04/11/18 09:00 04/11/18 09:40 04/11/18 09:00 04/11/18 09:00 04/11/18 09:00 Oxygen Delivery Method Room Air Weight: 240 lb 11.916 oz Body Mass Index (BMI) 35.5 Finger Stick Blood Glucose 119 Intake and Output for Last 24 Hours 04/09/18 04/10/18 04/11/18 23:59 23:59 23:59 Intake Total 2793 / 2793 1180 / 1180 1361 / 1361 Output Total 2600 / 2600 1625 / 1625 1575 / 1575 Balance 193 / 193 -445 / -445 -214 / -214 General: Alert, Oriented x3, Cooperative, No apparent distress HEENT: Atraumatic, PERRLA, EOMI, Normocephalic Oral: Moist Mucosa Neck: Supple, No JVD, Negative Carotid Bruits Lungs: Clear to auscultation, Normal air movement, No rhonchi, No wheeze, No rales Cardiovascular: Regular rate, Regular Rhythm, Normal S1, Normal S2, No murmurs Abdomen: Bowel Sounds Present, Soft, Non Tender, Non-Distended, No Hepato- splenomegaly Extremities: No clubbing, No cyanosis, No edema, Capillary Refill Less than 3 Seconds, - - left hallux dressing is clean and dry Skin: No rashes Musculoskeletal: No Tenderness to Palpation of Joints or Extremities, No Muscle Wasting Lymphatic: No Cervical, Supraclavicular, or Inguinal Adenopathy Neurological: Cranial nerves II-XII grossly intact, Motor Exam 5/5 strength throughout Psych/Mental Status: Normal Affect, Appropriate, Alert and oriented to time, place, person, mood and affect Microbiology Past 72 Hours 04/10/18 11:00 Wound - Hand Gram Stain - Final 04/10/18 11:00 Wound - Hand Wound Culture - Preliminary No growth-Final to follow 04/10/18 Unknown Biopsy - Toe Gram Stain - Final 04/10/18 Unknown Biopsy - Toe Wound Culture - Preliminary No growth-Final to follow 04/07/18 Unknown Tissue Ulcer - Tissue Gram Stain - Final 04/07/18 Unknown Tissue Ulcer - Tissue Wound Culture - Final Staphylococcus simulans 04/07/18 Unknown Tissue Ulcer - Tissue Anaerobic Culture - Final No anaerobic bacteria isolated. 04/07/18 Unknown Tissue - Toe Gram Stain - Final 04/07/18 Unknown Tissue - Toe Wound Culture - Final Staphylococcus simulans 04/07/18 Unknown Tissue - Toe Anaerobic Culture - Preliminary No growth in 48 hours. Laboratory Results 04/10/18 11:14: POC Glucose 134 H 04/10/18 16:02: POC Glucose 289 H 04/10/18 17:48: POC Glucose 292 H 04/10/18 18:30: S.aureus Protein A PCR NEGATIVE, MRSA (PCR) Negative 04/10/18 21:54: POC Glucose 232 H 04/11/18 06:42: POC Glucose 142 H 04/11/18 08:02: WBC 9.3, RBC 4.60, Hgb 12.8 L, Hct 38.5 L, MCV 83.7, MCH 27.8, MCHC 33.2, RDW 13.5, RDW Differential 40.9, Plt Count 298, MPV 11.0, Immature Gran % (Auto) 0.300, Neut % (Auto) 71.4 H, Lymph % (Auto) 16.8 L, Smyth % (Auto) 9.0, Eos % (Auto) 2.2, Baso % (Auto) 0.3, Absolute Neuts (auto) 6.6, Absolute Lymphs (auto) 1.56, Total Counted Not Reportable 04/11/18 08:02: Sodium 138, Potassium 4.2, Chloride 102, Carbon Dioxide 30.0, Anion Gap 6, BUN 20 H, Creatinine 1.39 H, Estim Creat Clear Calc 58.63, Est GFR (MDRD) Af Amer 68, Est GFR (MDRD) Non-Af 56 L, BUN/Creatinine Ratio 14.4, Glucose 149 H, Calcium 8.8 Current Medications Acetaminophen (Tylenol) 650 mg PO Q6H PRN PRN PRN Reason: Mild Pain (scale 0-3)/T>100.7 Last Admin: 04/09/18 20:08 Dose: 650 mg Amlodipine Besylate (Norvasc) 5 mg PO DAILY [facility] Last Admin: 04/11/18 09:40 Dose: 5 mg Aspirin (Aspirin, Baby) 81 mg PO DAILY@0800 [facility] Last Admin: 04/11/18 09:40 Dose: 81 mg Atorvastatin Calcium (Lipitor) 40 mg PO QHS [facility] Last Admin: 04/10/18 22:01 Dose: 40 mg Bisacodyl (Dulcolax) 10 mg PO DAILY PRN PRN PRN Reason: Constipation Fenofibrate (Tricor) 145 mg PO DAILY [facility] Last Admin: 04/11/18 09:41 Dose: 145 mg Ferrous Sulfate (Ferrous Sulfate) 325 mg PO DAILY@0800 [facility] Last Admin: 04/11/18 09:39 Dose: 325 mg Furosemide (Lasix) 20 mg PO DAILY [facility] Last Admin: 04/11/18 09:40 Dose: 20 mg Cefazolin Sodium 2 gm/ Sodium (Chloride) 110 mls @ 150 mls/hr IV Q8 [facility] Last Admin: 04/11/18 06:45 Dose: 150 mls/hr Insulin Glargine (Lantus (Bkc)) 38 units SC DAILY [facility] Last Admin: 04/11/18 09:38 Dose: 38 units Insulin Human Lispro (Humalog Kwikpen (Bkc)) 12 unit SC TIDCM [facility] Last Admin: 04/11/18 09:36 Dose: 12 units Insulin Human Lispro (Humalog Kwikpen (Bkc)) 0 unit SQ ACHS [facility] PRN Reason: Protocol Last Admin: 04/11/18 06:45 Dose: Not Given Linagliptin (Tradjenta) 5 mg PO DAILY [facility] Last Admin: 04/11/18 09:41 Dose: 5 mg Lisinopril (Zestril) 20 mg PO DAILY [facility] Last Admin: 04/11/18 09:41 Dose: 20 mg Magnesium Hydroxide (Milk Of Magnesia) 30 ml PO DAILY PRN PRN PRN Reason: Constipation Last Admin: 04/08/18 07:45 Dose: 30 ml Metoprolol Succinate (Toprol Xl (Beta Stanislaw)) 50 mg PO DAILY [facility] Last Admin: 04/11/18 09:40 Dose: 50 mg Metronidazole (Flagyl) 500 mg PO TID [facility] Last Admin: 04/11/18 06:45 Dose: 500 mg Morphine Sulfate () 2 - 4 mg IV Q3H PRN PRN PRN Reason: Severe Pain (pain scale 6-10) Morphine Sulfate () 2 - 4 mg IV Q3H PRN PRN PRN Reason: Severe Pain (pain scale 6-10) Nutritional Formula (Lactose Free) (Glucerna Shake) 120 ml PO TIDCM [facility] Last Admin: 04/11/18 09:45 Dose: 120 ml Ondansetron HCl (Zofran) 4 mg IV Q8H PRN PRN PRN Reason: Nausea Oxycodone HCl (Oxyir) 5 mg PO Q4H PRN PRN PRN Reason: Moderate Pain (pain scale 4-5) Sodium Chloride () 5 - 30 ml IV UD PRN PRN Reason: SALINE FLUSH Last Admin: 04/10/18 14:47 Dose: 10 ml Medical Necessity - Tobacco Use Smoking Status: Former smoker - he quit in 1994 Tobacco Use: Non-smoker Assessment/Plan All Active Problems Osteomyelitis of toe (Acute) 58-year-old male being managed for osteomyelitis of the left distal great toe status post amputation of the left hand looks 1. Osteomyelitis of the left great toe s/p left hallux amputation * stable. Hzs no complaints. * pathology and microbiology of left great toe grew Staph simulans; fungal cultures pending * on IV Ancef and PO metronidazole * ID on board; for PO doxycycline x 6 weeks. * podiatry on board; will discuss with Dr Ceballos about possible dc. * 2. Left thumb pustules s/p I&D- POd 1 * gram stain was negative. not enough fluid for culture. * wound cultures pending. Patient is stable. * 3. DM2 with neuropathy * poorly controlled. A1C was 8.6 on admisison. On lantus 38IU daily and lispro 12IU tidwm, as well as ISS * Accuchecks ACHS * 4. HTN: fairly controlled. On amlodipine and metoprolol 5. Hyperlipidemia: Stable. On statin and fenofibrate. 6.History of Charcot Foot s/p Right foot TMA: stable 7. PAD: on statin, aspirin. 8. CKD 3: stable. Cr is ~ 1.3 today. will monitor DVT prophylaxis: SCDs Disposition: DC home today on PO doxycycline 100mg bid x 6 weeks. I Code Visit Inpatient E&M: 93472 Subs Hosp L2
--- NOTE | 2018-04-11 10:05 | DCINST_ITS ---
- Discharge Diagnoses Current Active Problems: Current Active and Chronic Problems HTN (hypertension) (Chronic) Type 2 DM with CKD and hypertension (Chronic) Osteomyelitis of toe (Acute) left great toe, distal phalnax HLD (hyperlipidemia) (Chronic) History of transmetatarsal amputation of right foot (Chronic) Former smoker, stopped smoking in distant past (Chronic) Diabetic neuropathy (Chronic) CRF (chronic renal failure) (Chronic) Diabetic Charcot foot (Chronic) You will use the following diet at home:: Calorie/Carbohydrate Controlled ( specify 1200, 1400, etc) Your food should be the consistency of: Regular Your liquids should be the consistency of: Regular/Thin Discharge Activity: Use Walker, - - Wear surgical shoe, per podiatry. Partial weight bearing. Change dressing daily with betadine and lightly applied EMELIA wraps Weight Bearing Status: Partial weight bearing Call your doctor if your incision/area has: Continuous Slow Oozing, Increased Pain/ Swelling, Foul Smelling Discharge, Swelling at the incision site Call your doctor if you observe: Fever of 101 or Higher Instructions: Discharge Instructions for Osteomyelitis Allergies/Adverse Reactions: Allergies etodolac Allergy (Verified 04/06/18 12:18) Hives Medications to take at Discharge Amlodipine [Norvasc] 5 mg PO DAILY 04/06/18 Aspirin [Aspirin, Baby] 81 mg PO DAILY@0800 04/06/18 Atorvastatin Calcium [Lipitor] 40 mg PO QHS 04/06/18 Benazepril HCl [Lotensin] 20 mg PO DAILY 04/06/18 Collagenase [Santyl] 1 applicatio TOPICAL DAILY 04/06/18 Fenofibrate Nanocrystallized [Triglide] 160 mg PO DAILY 04/06/18 Ferrous Sulfate [Iron] 325 mg PO DAILY 04/06/18 Furosemide [Lasix] 20 mg PO DAILY 04/06/18 Insulin Aspart [Novolog Flexpen] 12 units SQ TIDCM 04/06/18 Insulin Glargine,Hum.rec.anlog [Lantus] 34 units SQ DAILY 04/06/18 Metformin(XR) [Glucophage Xr] 1,500 mg PO DAILY 04/06/18 Metoprolol Succinate [Toprol Xl] 50 mg PO DAILY 04/06/18 Sitagliptin Phosphate [Januvia] 100 mg PO DAILY 04/06/18 Doxycycline 100 mg PO BID 36 Days #72 cap 04/11/18 The following prescriptions were given: Doxycycline 100 mg PO BID 36 Days #72 cap Primary Care Physician: Kashif Cramer MD [Primary Care Provider] - Please follow up with your Primary Care Physician in: one week Test Results: Test results from this visit will be discussed in further detail at your follow- up appointment, if applicable. Please Follow Up With: Fletcher Hou MD When: one week Please Follow Up With: Del Ceballos DPM When: next friday/friday Proposed Discharge Date: 04/11/18
--- NOTE | 2018-04-11 10:19 | DS.PCM_ITS ---
Discharge Date and Diagnosis Date of Admission: 04/06/18 Date of Discharge: 04/11/18 - Primary Discharge Diagnosis Active and Suspected Problems Osteomyelitis of toe (Acute) left great toe, distal phalnax - Secondary Discharge Diagnosis Chronic Problems HTN (hypertension) (Chronic) Type 2 DM with CKD and hypertension (Chronic) HLD (hyperlipidemia) (Chronic) History of transmetatarsal amputation of right foot (Chronic) Former smoker, stopped smoking in distant past (Chronic) Diabetic neuropathy (Chronic) CRF (chronic renal failure) (Chronic) Diabetic Charcot foot (Chronic) Hospital Course and Treatment Imaging Results: 04/11/18 07:54 Xray Foot [Foot min 3 Views] [RAD] Urgent Consultations 04/06/18 13:09 Consult: Onc/Wound/automatic seamer Routine Comment: Operations: - - left hallux amputation Summary of Care Provided: The patient is a 58 year old M with a PMH of DM II, HTN, diabetic neuropathy, HLD, former smoker (quit in 1994) and transmetatarsal amputation of the R foot who was recently diagnosed with osteomyelitis of the left great toe by Dr. Ceballos. He was admitted on 04/06/18 for amputation of the left great toe. He underwent amputation of the left hallux distal phalanx on 04/07/2018 and cultures showed staph stimulans of the distal phalanx as well as staph stimulans of the proximal phalanx. He had amputation of the left hallux proximal phalanx on 04/10/2018. He was treated with IV cefazolin and p.o. metronidazole. The admission he also had left some left thumb pustules for which she had I&D and Gram stain was negative. Remained stable and was discharged in 1 04/11/2018 on a course of p.o. doxycycline 100 mg twice daily for 6 weeks. He is to follow-up with his primary care doctor and flake or shred roll operator as well as ID doctor. Patient was counseled about applying Betadine to his left first and fifth metatarsal and to change the bandage every day with Betadine and lightly applied Malachi wraps. He was counseled to partially weight-bear and use form cradle boots at home due to pressure on the lateral side of his foot. [] Discharge Activity: Use Walker, - - Wear surgical shoe, per podiatry. Partial weight bearing. Change dressing daily with betadine and lightly applied MALACHI wraps Weight Bearing Status: Partial weight bearing Call your doctor if your incision/area has: Continuous Slow Oozing, Increased Pain/ Swelling, Foul Smelling Discharge, Swelling at the incision site Call your doctor if you observe: Fever of 101 or Higher Home Medications: Medications to take at Discharge Amlodipine [Norvasc] 5 mg PO DAILY 04/06/18 Aspirin [Aspirin, Baby] 81 mg PO DAILY@0800 04/06/18 Atorvastatin Calcium [Lipitor] 40 mg PO QHS 04/06/18 Benazepril HCl [Lotensin] 20 mg PO DAILY 04/06/18 Collagenase [Santyl] 1 applicatio TOPICAL DAILY 04/06/18 Fenofibrate Nanocrystallized [Triglide] 160 mg PO DAILY 04/06/18 Ferrous Sulfate [Iron] 325 mg PO DAILY 04/06/18 Furosemide [Lasix] 20 mg PO DAILY 04/06/18 Insulin Aspart [Novolog Flexpen] 12 units SQ TIDCM 04/06/18 Insulin Glargine,Hum.rec.anlog [Lantus] 34 units SQ DAILY 04/06/18 Metformin(XR) [Glucophage Xr] 1,500 mg PO DAILY 04/06/18 Metoprolol Succinate [Toprol Xl] 50 mg PO DAILY 04/06/18 Sitagliptin Phosphate [Januvia] 100 mg PO DAILY 04/06/18 Doxycycline 100 mg PO BID 36 Days #72 cap 04/11/18 Following Prescrptions Were Given to Patient: Doxycycline 100 mg PO BID 36 Days #72 cap Primary Care Physician: Kashif Cramer MD [Primary Care Provider] - Please follow up with your Primary Care Physician in: one week Please Follow Up With: Fletcher Hou MD When: one week Please Follow Up With: Del Ceballos DPM When: next friday/friday Patient Instructions: Discharge Instructions for Osteomyelitis Disposition: Home Minutes spent on discharge:: 40 Patient Condition:: Stable Medical Necessity - Tobacco Use Smoking Status: Former smoker - he quit in 1994 Tobacco Use: Non-smoker Meaningful Use Info Meaningful Use Diagnoses (Choose all that apply): None applicable Code Visit Inpatient E&M: 19793 Disch Hosp
[2018-04-11] MEDS: Insulin Lispro 100 UNIT/ML INSULN.PEN SQ (11:50)
[2018-04-11 12:05] LABS: Bedside Glucose 230 mg/dL (70-110)
[2018-04-11 13:36] VITALS: BP 155/84; PULSE 79; RESP 16; TEMP 37.1; O2SAT 95
--- NOTE | 2018-04-13 17:46 | CASEMGMT ---
VINCE DOYLE Discharge Follow-Up Phone Call. JIE 9 [address] 3. Call Date 04/13/18 Discharge Date 04/11/18 RN VIVEK spoke w/Mr. Torres re: how he is feeling since he left the hospital. Mr Torres reports has has been real good. He reports he picked up his Doxycycline yesterday and has been taking as prescribed and denies having any questions about the medication. Pt reminded to take the ATB until completely gone. Pt stated he has an appt with Dr Ceballos tomorrow and that he has an upcoming appt with Dr Cramer on April 28 but that he is planning on calling in next couple of days to try to get in sooner. Mr Torres reports no needs at this time. HELEN DOYLE thanked pt for choosing [facility]. Cesar PEREZ RN, CM
== END 2018-04-11 14:40 | disposition home or self-care (01) | DRG 501 ==
LOC: MS2 11:25
PROVIDERS: Anesthesiology; Internal Medicine Infectious Disease; Podiatrist Foot & Ankle Surgery; Admitting Provider Internal Medicine; Family Provider Family Medicine; PCP Family Medicine; Visit Provider Student in an Organized Health Care Education/Training Program
PROC: 0Y6Q0Z1 Detachment at Left 1st Toe, High, Open Approach (ICD-10-PCS; principal; 2018-04-07 11:30)
PROC: 0JQR0ZZ Repair Left Foot Subcutaneous Tissue and Fascia, Open Approach (ICD-10-PCS; principal; 2018-04-10 08:15)
DX: M86.172 Other acute osteomyelitis, left ankle and foot (principal); L97.428 Non-pressure chronic ulcer of left heel and midfoot with other specified severity; B95.61 Methicillin susceptible Staphylococcus aureus infection as the cause of diseases classified elsewhere; E11.610 Type 2 diabetes mellitus with diabetic neuropathic arthropathy; E11.69 Type 2 diabetes mellitus with other specified complication; E11.40 Type 2 diabetes mellitus with diabetic neuropathy, unspecified; E11.621 Type 2 diabetes mellitus with foot ulcer; L97.522 Non-pressure chronic ulcer of other part of left foot with fat layer exposed; L08.9 Local infection of the skin and subcutaneous tissue, unspecified; I12.9 Hypertensive chronic kidney disease with stage 1 through stage 4 chronic kidney disease, or unspecified chronic kidney disease; E11.22 Type 2 diabetes mellitus with diabetic chronic kidney disease; N18.3 Chronic kidney disease, stage 3 (moderate); Z87.891 Personal history of nicotine dependence; Z79.4 Long term (current) use of insulin; D64.9 Anemia, unspecified; I73.9 Peripheral vascular disease, unspecified; E78.5 Hyperlipidemia, unspecified; Z79.82 Long term (current) use of aspirin; Z79.899 Other long term (current) drug therapy
CPT/HCPCS: 36415; 73620; 73630; 73660; 76000; 80048; 80053; 80061; 82962; 83036; 83735; 84100; 85025; 85027; 85610; 85652; 85730; 86140; 87015; 87070; 87075; 87077; 87102; 87116; 87186; 87205; 87206; 87640; 88304; 88305; 88311; 88312; 93005; 97802; J7030; J7040; A4216